=== PATIENT | male | born 1950 | race Caucasian/White ===

== ENCOUNTER → 2017-03-03 | Outpatient (REF) | payer MEDICARE, OTHER ==
[~2017-03-03] MED LIST: ASPI325T PO; DRIS50002 PO; FOLI1TAB4 PO; HYDR-3910 PO; KLON0.5T PO; RISP0.5T21 PO; VENL75TA2 PO; ZOCO20TA PO
[2017-03-03 11:18] LABS: ALBUMIN/GLOBULIN RATIO 1.48 (1.00-1.93); ALKALINE PHOSPHATASE 66 U/L (45-117); ALT/SGPT 19 U/L (12-78); ANION GAP 6 MEQ/L (8-16); AST/SGOT 16 U/L (15-37); BILIRUBIN,TOTAL 0.3 MG/DL (0.2-1.0); BLOOD UREA NITROGEN 12 MG/DL (7-18); CALCIUM LEVEL 8.8 MG/DL (8.8-10.2); CARBON DIOXIDE LEVEL 30 MEQ/L (21-32); CHLORIDE LEVEL 104 MEQ/L (98-107); CHOLESTEROL LEVEL 142 MG/DL (<200); CREATININE FOR GFR 0.67 MG/DL (0.70-1.30); GLOMERULAR FILTRATION RATE > 60.0 (>49); GLUCOSE, FASTING 84 MG/DL (80-110); POTASSIUM SERUM 4.3 MEQ/L (3.5-5.1); SODIUM LEVEL 140 MEQ/L (136-145); TOTAL PROTEIN 6.7 GM/DL (6.4-8.2); TRIGLYCERIDES LEVEL 64 MG/DL (<150)
== END ==
LOC: M LABDRAW1 09:55
PROVIDERS: ATTEND Nurse Practitioner Family
DX: E55.9 Vitamin D deficiency, unspecified (principal); E78.5 Hyperlipidemia, unspecified

== ENCOUNTER → 2018-03-09 | Outpatient (REF) | payer MEDICARE, OTHER ==
[2018-03-09 12:49] LABS: ALBUMIN 3.4 GM/DL (3.2-5.2); ALBUMIN/GLOBULIN RATIO 1.26 (1.00-1.93); ALKALINE PHOSPHATASE 65 U/L (45-117); ALT/SGPT 16 U/L (12-78); ANION GAP 11 MEQ/L (8-16); AST/SGOT 13 U/L (7-37); BILIRUBIN,TOTAL 0.2 MG/DL (0.2-1.0); BLOOD UREA NITROGEN 16 MG/DL (7-18); CALCIUM LEVEL 8.2 MG/DL (8.8-10.2); CARBON DIOXIDE LEVEL 28 MEQ/L (21-32); CHLORIDE LEVEL 102 MEQ/L (98-107); CHOLESTEROL LEVEL 133 MG/DL (<200); CHOLESTEROL RISK RATIO 2.418 (<5); CREATININE FOR GFR 0.92 MG/DL (0.70-1.30); GLOMERULAR FILTRATION RATE > 60.0 (>49); GLUCOSE, FASTING 158 MG/DL (70-100); HDL CHOLESTEROL 55 MG/DL (>40); LDL CHOLESTEROL 66 MG/DL (<100); NON-HDL-C 78 MG/DL; POTASSIUM SERUM 4.1 MEQ/L (3.5-5.1); SODIUM LEVEL 141 MEQ/L (136-145); TOTAL 25(OH) VITAMIN D 20.8 NG/ML (30.0-100.0); TOTAL PROTEIN 6.1 GM/DL (6.4-8.2); TRIGLYCERIDES LEVEL 61 MG/DL (<150)
[2018-03-10 14:39] LABS: PSA TOTAL 2.3 ng/mL (0.0-4.0)
== END ==
LOC: M LABDRAW1 11:20
DX: Z12.5 Encounter for screening for malignant neoplasm of prostate (principal); E55.9 Vitamin D deficiency, unspecified; E78.5 Hyperlipidemia, unspecified
CPT/HCPCS: 80053

== ENCOUNTER 2019-06-23 12:30 | Inpatient (IN) | payer MEDICARE, OTHER ==
[~2019-06-23] VITALS: Ht 177.8 cm; Wt 51.8 kg
[~2019-06-23 12:30] MED LIST changes: +ASPI-1 PO; -ASPI325T PO; -DRIS50002 PO; +DRIS50003 PO; +FOLI1TAB11 PO; -FOLI1TAB4 PO
[2019-06-23] MEDS ORDERED: HYDR-3910 PO (13:14)
[2019-06-23] MEDS ORDERED: ASPI81TA26 PO (13:14)
[2019-06-23] MEDS ORDERED: ZOCO80TA PO (13:14)
[2019-06-23 14:05] LABS: BASO % 0.4 % (0.0-1.0); EOS % 0.4 % (0.0-3.0); HEMOGLOBIN 14.7 g/dl (13.5-17.5); LYMPH # 1.3 10^3/uL (1.5-5.0); LYMPH % 16.4 % (24.0-44.0); MEAN CORPUSCULAR HEMOGLOBIN 29.8 pg (27.0-33.0); MEAN CORPUSCULAR HGB CONC 31.3 g/dl (32.0-36.5); MEAN CORPUSCULAR VOLUME 95.3 fl (80.0-96.0); MONO # 0.6 10^3/uL (0.0-0.8); MONO % 7.4 % (0.0-5.0); NEUTROPHILS # 5.9 10^3/uL (1.5-8.5); NEUTROPHILS % 74.9 % (36.0-66.0); PLATELET COUNT, AUTOMATED 238 10^3/uL (150-450); RED BLOOD COUNT 4.93 10^6/uL (4.30-6.10); WHITE BLOOD COUNT 7.9 10^3/uL (4.0-10.0)
--- NOTE | 2019-06-23 14:07 | REP ---
INDICATION: Hyperthermia PROCEDURE: CT head without contrast. COMPARISON STUDIES: MRI brain without contrast 03/19/2015. FINDINGS: No acute bleed or acute large vessel territorial infarct. Ventricles, cisterns and sulci within normal limits. No mass effect or midline shift. No abnormal fluid collections. Paranasal sinuses and mastoid air cells are clear. Comparison MRI from 03/19/2015 showed a few scattered nonspecific white matter changes. A few punctate hypodensities are seen scattered, right and left caudate and right and left thalami, that may represent sequelae of small lacunar infarcts. IMPRESSION: No acute findings. Electronically Signed by Pedro Green MD 06/23/2019 01:58 P
[2019-06-23 14:36] LABS: ALBUMIN 3.4 GM/DL (3.2-5.2); ALT/SGPT 20 U/L (12-78); BILIRUBIN,DIRECT 0.1 MG/DL (0.0-0.2); BILIRUBIN,TOTAL 0.4 MG/DL (0.2-1.0); CK-MB VALUE MASS 4.6 NG/ML (<3.6); CPK CREATINE PHOSPHOKINASE 96 U/L (39-308); LIPASE 103 U/L (73-393); MB/CK RELATIVE INDEX 4.79 (< OR =4); TOTAL PROTEIN 6.5 GM/DL (6.4-8.2); TROPONIN I < 0.02 NG/ML (< 0.10)
[2019-06-23] MEDS ORDERED: ALBUTEROL SULFATE 2.5 MG/0.5 ML INH NEB SOLN As Ordered ONE (15:23)
[2019-06-23] MEDS ORDERED: IPRATROPIUM 0.5MG/ALBUTEROL 2.5MG INH SOL UD 3ML (DUONEB)(J7620) As Ordered ONE (15:24)
[2019-06-23] MEDS: ALBUTEROL SULFATE 2.5 MG/0.5 ML INH NEB SOLN INH PRN ×2 (15:30→15:55)
[2019-06-23] MEDS ORDERED: IPRATROPIUM 0.5MG/ALBUTEROL 2.5MG INH SOL UD 3ML (DUONEB)(J7620) NEB ONE (15:30)
--- NOTE | 2019-06-23 15:45 | REP ---
Portable chest x-ray: Single view. History: Hypothermia. Comparison study: March 19, 2015. Findings: Patient is rotated somewhat to the left. The lungs are symmetrically aerated and free of infiltrate. Heart is not enlarged. Pulmonary vasculature is not increased. No bony abnormalities seen. Impression: No active cardiopulmonary disease. Electronically Signed by Osbaldo Figueroa MD 06/23/2019 01:46 P
[2019-06-23] MEDS ORDERED: ACETAMINOPHEN TAB 650MG DOSE (2X325MG) PO PRN (16:45)
--- NOTE | 2019-06-23 16:46 | HPEPDOC ---
[facility] Medical History & Physical Date of Admission Jun 23, 2019 Date of Service: Jun 23, 2019 History and Physical CHIEF COMPLAINT: Hypothermia HISTORY OF PRESENT ILLNESS: Patient is 68M with PMH anxiety and previous alcohol abuse brought into the ER after neighbors noted patient to be acting strange at home after checking up on him. Upon EMS arrival patient was found to have T 91.7F with subsequent warming to 94.7F upon ER arrival, now with normal body temperature. Patient currently appears well and denies any complaints, although noted to be hypoxic on ABG and O2 sat requiring some O2 support via nasal cannula. Patient does not remember what happened or why he is in the hospital. He does remember having dinner and going to bed last night but has very hazy memory of what happened today. PAST MEDICAL HISTORY: Refer to [facility] PAST SURGICAL HISTORY: None SOCIAL HISTORY: Smokes 1-2 ppd. Former heavy alcohol user. Denies illicit drug use. FAMILY HISTORY: Parents- DM ALLERGIES: Please see below. REVIEW OF SYSTEMS: 10 point review of system negative except as stated in HPI HOME MEDICATIONS: Please see below. PHYSICAL EXAMINATION: General: Alert, poor memory, very thin, appear malnourished Eyes: Normal sclera, EOMI HENT: Atraumatic Cardiovascular: Tachycardic, normal rhythm. Pulmonary: Clear to auscultation b/l, no wheezing GI: Soft, nontender, nondistended Skin: Warm and dry Neuro: CN grossly intact. No focal deficits. Strengths equal b/l. Psych: oriented x 3 LABORATORY DATA: See below. IMAGING: Head CT- No acute findings. CXR- No active cardiopulmonary disease. MICROBIOLOGY: Please see below. ASSESSMENT AND PLAN: 1. Hypothermia - Appear to be enviromental etiology. - No evidence of sepsis. No leukocytosis, no lactic acidosis. - Patient clinically well at this time, does not appear ill. - Mild tachycardia in low 100s HR. Will monitor on PCU. - Denies any chest pain. Negative troponin. EKG appear to be some evidence of ST depression in inferior leads but does not fit criteria to consider ST depression. 2. Anxiety - Resume home meds. 3. Hx alcohol abuse - Has quit many years ago. Very poor memory at this time, unsure of baseline. - Will give a banana bag follow by thiamine and folate supplementation. 4. Hypoxia - Unknown etiology. - CXR clear, extensive smoking history, no official diagnosis of COPD but may very well have it. - Monitor and wean off O2 if possible. 5. Nicotine dependence - Offer nicotine patch. 6. Protein calory malnutrition - Dietary consult. DVT ppx: Lovenox Code status: Full code Vital Signs Vital Signs Date Time Temp Pulse Resp B/P (MAP) Pulse Ox O2 Delivery O2 Flow Rate FiO2 06/23/19 16:30 104 18 139/106 (117) 96 Nasal Cannula 2.0 06/23/19 14:37 97.9 Laboratory Data Labs 24H Laboratory Tests 2 06/23/19 13:56: Immature Granulocyte % (Auto) 0.5, Neutrophils (%) (Auto) 74.9H, Lymphocytes (%) (Auto) 16.4L, Monocytes (%) (Auto) 7.4H, Eosinophils (%) (Auto) 0.4, Basophils (%) (Auto) 0.4, Neutrophils # (Auto) 5.9, Lymphocytes # (Auto) 1.3L, Monocytes # (Auto) 0.6, Eosinophils # (Auto) 0.0, Basophils # (Auto) 0.0, Nucleated Red Blood Cells % (auto) 0.0, Total Bilirubin 0.4, Direct Bilirubin 0.1, Aspartate Amino Transf (AST/SGOT) 20, Alanine Aminotransferase (ALT/SGPT) 20, Alkaline Phosphatase 84, Total Creatine Kinase 96, Creatine Kinase MB 4.6H, Creatine Kinase MB Relative Index 4.79H, Troponin I < 0.02, Total Protein 6.5, Albumin 3.4, Albumin/Globulin Ratio 1.10, Lipase 103 06/23/19 14:01: POC Glucose (Misc Panel) 129H, POC Sodium (Misc Panel) 140, POC Potassium (Misc Panel) 4.9, POC Chloride (Misc Panel) 97L, POC Total CO2 (Misc Panel) 35.0H, POC Blood Urea Nitrogen (Misc Panel 12, POC Ionized Calcium (Misc Panel) 4.4L, POC Creatinine (Misc Panel) 0.5L, POC Hematocrit (Misc Panel) 45.0 06/23/19 14:02: POC Lactate (Misc Panel) 1.69 06/23/19 15:18: POC Total CO2 (Misc Panel) 36.0H, POC pH (Misc Panel) 7.374, POC Base Excess (Misc Panel) 9.0H, POC Saturated Percent O2 (Misc) 87L, POC pO2 (Misc Panel) 56.0L, POC pCO2 (Misc Panel) 58.9H, POC HCO3 (Misc Panel) 34.4H CBC/BMP Laboratory Tests 06/23/19 13:56 Home Medications Scheduled Aspirin (Aspirin EC) 81 Mg Tablet.dr, 81 MG PO DAILY Clonazepam (Klonopin) 0.5 Mg Tab, 0.5 MG PO BID Folic Acid (Folic Acid) 1 Mg Tab, 1 MG PO DAILY Hydralazine HCl (Hydralazine HCl) 25 Mg Tablet, 25 MG PO BID Risperidone (Risperdal) 0.5 Mg Tab, 0.5 MG PO QHS PATIENT'S PILL BOTTLE IS EMPTY, STATES HE DID TAKE LAST NIGHT - LAST FILLED JANUARY 2019 Simvastatin (Zocor) 80 Mg Tablet, 80 MG PO QHS Venlafaxine HCl (Venlafaxine HCl) 75 Mg Tab, 150 MG PO DAILY Allergies Coded Allergies: No Known Allergies (Unverified , 03/20/15) A-FIB/CHADSVASC A-FIB History Current/History of A-Fib/PAF?: No RAFFY COLLIER MD Jun 23, 2019 16:46
[2019-06-23 17:45] VITALS: BP 132/79
[2019-06-23 19:38] LABS: HIV 1&2 SCREEN CENTAUR NEGATIVE (NEGATIVE)
[2019-06-23] MEDS ORDERED: MULTIVITAMIN -ADULT INJECTION 10 ML, THIAMINE INJection 100 MG, FOLIC ACID 1 MG in NS 1... IV ONE (20:00)
[2019-06-23 20:21] VITALS: BP 142/84
[2019-06-23 23:59] VITALS: BP 148/98
[2019-06-24 05:32] VITALS: BP 160/102
[2019-06-24 05:53] LABS: ALT/SGPT 15 U/L (12-78); BILIRUBIN,TOTAL 0.4 MG/DL (0.2-1.0); BLOOD UREA NITROGEN 8 MG/DL (7-18); CALCIUM LEVEL 8.7 MG/DL (8.8-10.2); CARBON DIOXIDE LEVEL 30 MEQ/L (21-32); CHLORIDE LEVEL 104 MEQ/L (98-107); CREATININE FOR GFR 0.55 MG/DL (0.70-1.30); GLOMERULAR FILTRATION RATE > 60.0 (>49); GLUCOSE, FASTING 122 MG/DL (70-100); POTASSIUM SERUM 3.7 MEQ/L (3.5-5.1); SODIUM LEVEL 139 MEQ/L (136-145); TOTAL PROTEIN 6.4 GM/DL (6.4-8.2)
[2019-06-24 07:49] VITALS: BP 142/98
[2019-06-24] MEDS: FOLIC ACID 1 MG TAB PO SCH (08:08)
[2019-06-24] MEDS: THIAMINE 100 MG TAB PO SCH (08:08)
[2019-06-24] MEDS: ENOXAPARIN 40 MG/0.4 ML SYRINGE (J1650) SC SCH (08:08)
[2019-06-24] MEDS: NICOTINE 14 MG/24 HR TRANSDERMAL TD SCH (08:08)
--- NOTE | 2019-06-24 09:56 | ECGEPIP ---
[facility] - ED Test Date: 2019-06-23 Pat Name: SHARYN RUBY Department: Room: - Gender: Male Stuffer: : 1950 Requested By: SOPHIA RODGERS Order Number: [id number] Reading MD: Mira Ferrell Measurements Intervals [place] Rate: 97 P: 87 MS: 174 QRS: -13 QRSD: 101 T: 267 QT: 396 QTc: 504 Interpretive Statements SINUS RHYTHM ST DEVIATION AND MODERATE T-WAVE ABNORMALITY, CONSIDER INFERIOR ISCHEMIA, CLINICAL CORRELATION, MORE PRONOUNCED 03/19/15 Electronically Signed on 06-24-2019 9:56:19 EST by Mira Ferrell
--- NOTE | 2019-06-24 11:47 | IPNPDOC ---
Date Seen The patient was seen on 06/24/19. Progress Note SUBJECTIVE: Patient reports feeling well, still does not report any complaints. HR 90-100s. Last temp 97.8 Saturating well on 2L NC OBJECTIVE PHYSICAL EXAMINATION: General: Alert, poor memory, very thin, appear malnourished Eyes: Normal sclera, EOMI HENT: Atraumatic Cardiovascular: Normal rate, normal rhythm. Pulmonary: Clear to auscultation b/l, no wheezing GI: Soft, nontender, nondistended Skin: Warm and dry Neuro: CN grossly intact. No focal deficits. Strengths equal b/l. Psych: oriented x 3 LABORATORY DATA: See below. IMAGING: Head CT- No acute findings. CXR- No active cardiopulmonary disease. MICROBIOLOGY: Please see below. ASSESSMENT AND PLAN: 1. Hypothermia - Appear to be enviromental etiology. Suspect patient may have been outside for awhile? - No evidence of sepsis. No leukocytosis, no lactic acidosis. - Patient clinically well, does not appear ill. - Mild tachycardia improved. Will monitor on PCU. - Denies any chest pain. Negative troponin. 2. Anxiety - Resume home meds. 3. Hx alcohol abuse - Has quit many years ago. Very poor memory at this time, unsure of baseline. - thiamine and folate supplementation. 4. Hypoxia - Unknown etiology. - CXR clear, extensive smoking history, no official diagnosis of COPD but may very well have it. - Monitor and wean off O2 if possible. 5. Nicotine dependence - Offer nicotine patch. 6. Protein calory malnutrition - Dietary consult. DVT ppx: Lovenox Code status: Full code Dispo: Pending PT home safety eval clearance. To contact apartment to make sure heating system is working properly at patient's residence. VS, I&O, 24H, Fishbone Vital Signs/I&O Vital Signs Date Time Temp Pulse Resp B/P (MAP) Pulse Ox O2 Delivery O2 Flow Rate FiO2 06/24/19 07:49 97.8 99 20 142/98 (113) 95 Nasal Cannula 2.0 I&O- Last 24 Hours up to 6 AM 06/24/19 06:00 Intake Total 600 ml Output Total 1050 ml Balance -450 ml Laboratory Data 24H LABS Laboratory Tests 2 06/23/19 13:56: Immature Granulocyte % (Auto) 0.5, Neutrophils (%) (Auto) 74.9H, Lymphocytes (%) (Auto) 16.4L, Monocytes (%) (Auto) 7.4H, Eosinophils (%) (Auto) 0.4, Basophils (%) (Auto) 0.4, Neutrophils # (Auto) 5.9, Lymphocytes # (Auto) 1.3L, Monocytes # (Auto) 0.6, Eosinophils # (Auto) 0.0, Basophils # (Auto) 0.0, Nucleated Red Blood Cells % (auto) 0.0, Total Bilirubin 0.4, Direct Bilirubin 0.1, Aspartate Amino Transf (AST/SGOT) 20, Alanine Aminotransferase (ALT/SGPT) 20, Alkaline Phosphatase 84, Total Creatine Kinase 96, Creatine Kinase MB 4.6H, Creatine Kinase MB Relative Index 4.79H, Troponin I < 0.02, Total Protein 6.5, Albumin 3.4, Albumin/Globulin Ratio 1.10, Lipase 103, HIV Antigen/Antibody Combo Qual NEGATIVE 06/23/19 14:01: POC Glucose (Misc Panel) 129H, POC Sodium (Misc Panel) 140, POC Potassium (Misc Panel) 4.9, POC Chloride (Misc Panel) 97L, POC Total CO2 (Misc Panel) 35.0H, POC Blood Urea Nitrogen (Misc Panel 12, POC Ionized Calcium (Misc Panel) 4.4L, POC Creatinine (Misc Panel) 0.5L, POC Hematocrit (Misc Panel) 45.0 06/23/19 14:02: POC Lactate (Misc Panel) 1.69 06/23/19 15:18: POC Total CO2 (Misc Panel) 36.0H, POC pH (Misc Panel) 7.374, POC Base Excess (Misc Panel) 9.0H, POC Saturated Percent O2 (Misc) 87L, POC pO2 (Misc Panel) 56.0L, POC pCO2 (Misc Panel) 58.9H, POC HCO3 (Misc Panel) 34.4H 06/24/19 05:07: Anion Gap 5L, Glomerular Filtration Rate > 60.0, Calcium Level 8.7L, Total Bilirubin 0.4, Aspartate Amino Transf (AST/SGOT) 13, Alanine Aminotransferase (ALT/SGPT) 15, Alkaline Phosphatase 70, Total Protein 6.4, Albumin 3.0L, Albumin/Globulin Ratio 0.88L CBC/BMP Laboratory Tests 06/23/19 13:56 06/24/19 05:07 RAFFY COLLIER MD Jun 24, 2019 11:47
[2019-06-24 11:50] VITALS: BP 154/93
[2019-06-24 13:00] VITALS: BP 150/92
[2019-06-24 14:00] VITALS: BP 150/82
[2019-06-24 22:00] VITALS: BP 162/88
[2019-06-25 05:30] VITALS: BP 164/110
[2019-06-25 05:55] VITALS: BP 164/110
[2019-06-25] MEDS ORDERED: **hydrALAZINE** 10 MG TAB PO ONE (06:15)
[2019-06-25 07:55] LABS: HEMATOCRIT 56.7 % (42.0-52.0); HEMOGLOBIN 17.7 g/dl (13.5-17.5); MEAN CORPUSCULAR HEMOGLOBIN 29.6 pg (27.0-33.0); MEAN CORPUSCULAR HGB CONC 31.2 g/dl (32.0-36.5); PLATELET COUNT, AUTOMATED 236 10^3/uL (150-450); RED BLOOD COUNT 5.97 10^6/uL (4.30-6.10); WHITE BLOOD COUNT 11.7 10^3/uL (4.0-10.0)
[2019-06-25 08:17] LABS: BLOOD UREA NITROGEN 6 MG/DL (7-18); CALCIUM LEVEL 8.9 MG/DL (8.8-10.2); CARBON DIOXIDE LEVEL 32 MEQ/L (21-32); CHLORIDE LEVEL 103 MEQ/L (98-107); CREATININE FOR GFR 0.56 MG/DL (0.70-1.30); GLOMERULAR FILTRATION RATE > 60.0 (>49); GLUCOSE, FASTING 120 MG/DL (70-100); POTASSIUM SERUM 3.6 MEQ/L (3.5-5.1); SODIUM LEVEL 140 MEQ/L (136-145)
[2019-06-25] MEDS: NICOTINE 14 MG/24 HR TRANSDERMAL TD SCH (08:18)
[2019-06-25] MEDS: THIAMINE 100 MG TAB PO SCH (08:18)
[2019-06-25] MEDS: NS 1,000 ML IV SCH ×2 (08:18→17:17)
[2019-06-25] MEDS: ENOXAPARIN 40 MG/0.4 ML SYRINGE (J1650) SC SCH (08:18)
[2019-06-25] MEDS: FOLIC ACID 1 MG TAB PO SCH (08:18)
[2019-06-25] MEDS ORDERED: amLODIPine 5 MG TAB PO SCH (09:00)
[2019-06-25 11:22] VITALS: BP 138/80
[2019-06-25 14:00] VITALS: BP 118/70
--- NOTE | 2019-06-25 14:34 | IPNPDOC ---
Date Seen The patient was seen on 06/25/19. Progress Note SUBJECTIVE: Patient states that he feels well, denies any pain, SOB, fever/chills. HR remains elevated 100-120s. Otherwise afebrile, saturating well on room air. OBJECTIVE PHYSICAL EXAMINATION: General: Alert, poor memory, very thin, appear malnourished Eyes: Normal sclera, EOMI HENT: Atraumatic Cardiovascular: Normal rate, normal rhythm. Pulmonary: Clear to auscultation b/l, no wheezing GI: Soft, nontender, nondistended Skin: Warm and dry Neuro: CN grossly intact. No focal deficits. Strengths equal b/l. Psych: oriented x 3 LABORATORY DATA: See below. IMAGING: Head CT- No acute findings. CXR- No active cardiopulmonary disease. MICROBIOLOGY: Please see below. ASSESSMENT AND PLAN: 1. Hypothermia - Appear to be environmental etiology. Suspect patient may have been outside for awhile? - No evidence of sepsis. No leukocytosis, no lactic acidosis. - Patient clinically well, does not appear ill. - Mild tachycardia. Will start on IVF, suspect hypovolemic/dehydration. - Denies any chest pain. Negative troponin. 2. Anxiety - Resume home meds. 3. Hx alcohol abuse - Has quit many years ago. Very poor memory at this time, unsure of baseline. - thiamine and folate supplementation. 4. Hypoxia - Unknown etiology. - CXR clear, extensive smoking history, no official diagnosis of COPD but may very well have it. - Monitor and wean off O2 if possible. 5. Nicotine dependence - Offer nicotine patch. 6. Protein calory malnutrition - Dietary consult. 7. HTN - Not on medications for HTN but BP had been high periodically, especially with diastolic pressure. - Started on Norvasc. DVT ppx: Lovenox Code status: Full code Dispo: Pending PT home safety eval clearance. To contact apartment to make sure heating system is working properly at patient's residence. VS, I&O, 24H, Fishbone Vital Signs/I&O Vital Signs Date Time Temp Pulse Resp B/P (MAP) Pulse Ox O2 Delivery O2 Flow Rate FiO2 06/25/19 11:22 121 138/80 (99) 06/25/19 06:00 98.0 20 97 Room Air 06/24/19 11:50 2.0 I&O- Last 24 Hours up to 6 AM 1/19/20 06:00 Intake Total 1000 ml Output Total 1050 ml Balance -50 ml Laboratory Data 24H LABS Laboratory Tests 2 06/25/19 05:36: Bedside Glucose (Misc Panel) 139H 06/25/19 07:42: Nucleated Red Blood Cells % (auto) 0.0, Anion Gap 5L, Glomerular Filtration Rate > 60.0, Calcium Level 8.9 CBC/BMP Laboratory Tests 06/25/19 07:42 RAFFY COLLIER MD Jun 25, 2019 14:34
[2019-06-25 22:00] VITALS: BP 177/113
[2019-06-26] MEDS: NS 1,000 ML IV SCH ×2 (04:26→14:08)
[2019-06-26] MEDS ORDERED: amLODIPine 5 MG TAB PO ONE ×2 (04:45→09:00)
[2019-06-26 06:00] VITALS: BP 182/108
[2019-06-26 08:30] LABS: HEMATOCRIT 51.8 % (42.0-52.0); HEMOGLOBIN 16.2 g/dl (13.5-17.5); MEAN CORPUSCULAR HEMOGLOBIN 30.1 pg (27.0-33.0); MEAN CORPUSCULAR HGB CONC 31.3 g/dl (32.0-36.5); MEAN CORPUSCULAR VOLUME 96.3 fl (80.0-96.0); PLATELET COUNT, AUTOMATED 239 10^3/uL (150-450); RED BLOOD COUNT 5.38 10^6/uL (4.30-6.10); WHITE BLOOD COUNT 10.2 10^3/uL (4.0-10.0)
[2019-06-26] MEDS: FOLIC ACID 1 MG TAB PO SCH (08:42)
[2019-06-26] MEDS: THIAMINE 100 MG TAB PO SCH (08:42)
[2019-06-26] MEDS: ENOXAPARIN 40 MG/0.4 ML SYRINGE (J1650) SC SCH (08:42)
[2019-06-26] MEDS: NICOTINE 14 MG/24 HR TRANSDERMAL TD SCH (08:44)
[2019-06-26 08:56] LABS: BLOOD UREA NITROGEN 9 MG/DL (7-18); CALCIUM LEVEL 8.4 MG/DL (8.8-10.2); CARBON DIOXIDE LEVEL 34 MEQ/L (21-32); CHLORIDE LEVEL 103 MEQ/L (98-107); CREATININE FOR GFR 0.75 MG/DL (0.70-1.30); GLOMERULAR FILTRATION RATE > 60.0 (>49); GLUCOSE, FASTING 183 MG/DL (70-100); SODIUM LEVEL 141 MEQ/L (136-145)
[2019-06-26] MEDS ORDERED: amLODIPine 10 MG TAB PO SCH (09:00)
[2019-06-26 10:00] VITALS: BP 132/99
[2019-06-26 12:16] LABS: HEPATITIS C VIRUS ABY INDEX < 0.0 INDEX (<0.8)
[2019-06-26 14:00] VITALS: BP 130/96
--- NOTE | 2019-06-26 17:06 | IPNPDOC ---
Date Seen The patient was seen on 06/26/19. Progress Note SUBJECTIVE: Patient denies any complaints including any discomfort, SOB. Remains off of oxygen. HR still intermittently elevated fluctuating from 90-110s. WBC 10..2. OBJECTIVE PHYSICAL EXAMINATION: General: Alert, poor memory, very thin, appear malnourished Eyes: Normal sclera, EOMI HENT: Atraumatic Cardiovascular: tachycardia, normal rhythm. Pulmonary: Clear to auscultation b/l, no wheezing GI: Soft, nontender, nondistended Skin: Warm and dry Neuro: CN grossly intact. No focal deficits. Strengths equal b/l. Psych: oriented x 3 LABORATORY DATA: See below. IMAGING: Head CT- No acute findings. CXR- No active cardiopulmonary disease. MICROBIOLOGY: Please see below. ASSESSMENT AND PLAN: 1. Hypothermia - Appear to be environmental etiology. Suspect patient may have been outside for awhile? - No clear evidence of sepsis. No lactic acidosis. - However, has had a bump in WBC to 11.7 and now 10.2 along with tachycardia that had not resolved with IVF. - Order ECHO and blood cultures. - Denies any chest pain. Negative troponin. 2. Anxiety - Resume home meds. 3. Hx alcohol abuse - Has quit many years ago. Very poor memory at this time, unsure of baseline. - thiamine and folate supplementation. 4. Hypoxia - Unknown etiology. - CXR clear, extensive smoking history, no official diagnosis of COPD but may very well have it. - Monitor and wean off O2 if possible. 5. Nicotine dependence - Offer nicotine patch. 6. Protein calory malnutrition - Dietary consult. 7. HTN - Not on medications for HTN but BP had been high periodically, especially with diastolic pressure. - Started on Norvasc. DVT ppx: Lovenox Code status: Full code Dispo: Pending PT home safety eval clearance. To contact apartment to make sure heating system is working properly at patient's residence. VS, I&O, 24H, Fishbone Vital Signs/I&O Vital Signs Date Time Temp Pulse Resp B/P (MAP) Pulse Ox O2 Delivery O2 Flow Rate FiO2 06/26/19 14:00 98.3 101 18 130/96 (107) 96 Room Air 06/25/19 14:00 1.0 I&O- Last 24 Hours up to 6 AM 06/26/19 06:00 Intake Total 2830 ml Output Total 1655 ml Balance 1175 ml Laboratory Data 24H LABS Laboratory Tests 2 06/26/19 08:16: Nucleated Red Blood Cells % (auto) 0.0, Anion Gap 4L, Glomerular Filtration Rate > 60.0, Calcium Level 8.4L CBC/BMP Laboratory Tests 06/26/19 08:16 RAFFY COLLIER MD Jun 26, 2019 17:06
[2019-06-26 18:00] VITALS: BP 114/76
[2019-06-26 22:00] VITALS: BP 132/87
[2019-06-27] MEDS: NS 1,000 ML IV SCH ×2 (00:32→09:34)
[2019-06-27 02:00] VITALS: BP 122/75
[2019-06-27] MEDS: NICOTINE 21MG/24HR 1 EA TRANSDERMAL TD SCH ×2 (02:03→09:31)
[2019-06-27 06:00] VITALS: BP 142/89
[2019-06-27] MEDS ORDERED: amLODIPine 10 MG TAB PO SCH (09:00)
[2019-06-27] MEDS ORDERED: NICOTINE 14 MG/24 HR TRANSDERMAL TD SCH (09:00)
[2019-06-27] MEDS: THIAMINE 100 MG TAB PO SCH (09:30)
[2019-06-27] MEDS: ENOXAPARIN 40 MG/0.4 ML SYRINGE (J1650) SC SCH (09:31)
[2019-06-27 09:32] VITALS: BP 123/91
[2019-06-27] MEDS: FOLIC ACID 1 MG TAB PO SCH (09:33)
[2019-06-27 14:00] VITALS: BP 146/86
[2019-06-27] MEDS ORDERED: ASPIRIN 81 MG ENTERIC TAB PO SCH (15:30)
[2019-06-27] MEDS ORDERED: ATORVASTATIN 20 MG TAB PO ONE (15:30)
[2019-06-27 15:58] LABS: BASO % 0.4 % (0.0-1.0); EOS % 0.4 % (0.0-3.0); HEMATOCRIT 44.2 % (42.0-52.0); HEMOGLOBIN 13.8 g/dl (13.5-17.5); LYMPH # 1.5 10^3/uL (1.5-5.0); LYMPH % 17.6 % (24.0-44.0); MEAN CORPUSCULAR HEMOGLOBIN 29.5 pg (27.0-33.0); MEAN CORPUSCULAR HGB CONC 31.2 g/dl (32.0-36.5); MEAN CORPUSCULAR VOLUME 94.4 fl (80.0-96.0); MONO # 0.7 10^3/uL (0.0-0.8); MONO % 7.9 % (0.0-5.0); NEUTROPHILS # 6.1 10^3/uL (1.5-8.5); NEUTROPHILS % 73.3 % (36.0-66.0); PLATELET COUNT, AUTOMATED 213 10^3/uL (150-450); RED BLOOD COUNT 4.68 10^6/uL (4.30-6.10); WHITE BLOOD COUNT 8.3 10^3/uL (4.0-10.0)
[2019-06-27 16:36] LABS: ERYTHROCYTE SEDIMENTATION RATE 7 mm/hr (0-20)
[2019-06-27 16:41] LABS: BLOOD UREA NITROGEN 16 MG/DL (7-18); C REACTIVE PROTEIN QUANTITATIV < 0.30 MG/DL (0.00-0.30); CALCIUM LEVEL 8.8 MG/DL (8.8-10.2); CARBON DIOXIDE LEVEL 29 MEQ/L (21-32); CHLORIDE LEVEL 104 MEQ/L (98-107); CHOLESTEROL LEVEL 172 MG/DL (<200); CHOLESTEROL RISK RATIO 3.185 (<5); FREE THYROXINE INDEX 4.1 % (1.4-3.8); GLOMERULAR FILTRATION RATE > 60.0 (>49); GLUCOSE, FASTING 85 MG/DL (70-100); HDL CHOLESTEROL 54 MG/DL (>40); LDL CHOLESTEROL 94 MG/DL (<100); NON-HDL-C 118 MG/DL; POTASSIUM SERUM 4.3 MEQ/L (3.5-5.1); SODIUM LEVEL 141 MEQ/L (136-145); T UPTAKE 35 % (33-40); THYROID STIMULATING HORMONE 0.832 uIU/ML (0.358-3.740); THYROXINE (T4) 11.6 UG/DL (4.5-12.0); TRIGLYCERIDES LEVEL 122 MG/DL (<150)
--- NOTE | 2019-06-27 19:15 | ECHO ---
DATE OF PROCEDURE: 06/27/2019 REFERRING PHYSICIAN: Dr. Torrez INDICATION: Tachycardia. Height 178 cm, weight 52 kg. DIMENSIONS: IVS: 1.2 LV: 3.8 LVPW: 1.2 LA: 3.0 Aorta: 3.9 IVC: 1.3 Mitral E wave velocity: 59 A wave: 70 E prime septal: 4.0 E prime lateral: 6.0 FINDINGS: The study is of fair technical quality. The patient is in sinus rhythm. Left ventricle is normal size and has normal systolic function, estimated ejection fraction (EF) around 60% Based on technical limitations of the study, I cannot rule out subtle wall motion abnormalities. The right ventricle appears to be normal size and systolic function as well. Aortic valve is mildly sclerotic but mobility of cusps is preserved. There are mild degenerative abnormalities of mitral valve as well. Tricuspid and pulmonic valves appear normal. No pericardial effusion is noted. Inferior vena cava is normal size. Aortic root is mildly dilated at 3.9 cm. Aortic arch was not seen. There is some degree of atherosclerosis apparent in abdominal aorta. Doppler interrogation of aortic valve reveals no stenosis and trace insufficiency. There is also trace mitral insufficiency. Tricuspid valve is functionally competent. Same applies for pulmonic valve. Mitral inflow pattern and tissue Doppler imaging of mitral annulus revealed grade 1 diastolic dysfunction. CONCLUSIONS: 1. Study is of fair technical quality, patient is in sinus rhythm. 2. Normal left ventricular (LV) size with mild left ventricular hypertrophy (LVH) and preserved LV systolic function. Grade 1 diastolic dysfunction. 3. Aortic sclerosis but no stenosis, only trace insufficiency. 4. Trace mitral insufficiency. 5. Normal central venous pressure. 6. Unable to estimate pulmonary artery pressure. 7. Borderline dilated aortic root (3.9 cm). COMMENT: Subacute bacterial endocarditis (SBE) prophylaxis is not recommended. Study does not provide obvious explanation for cause of tachycardia.
--- NOTE | 2019-06-28 07:47 | DSES ---
DATE OF ADMISSION: 06/23/2019 DATE OF DISCHARGE: 06/27/2019 PRIMARY DISCHARGE DIAGNOSIS: 1. Hypothermia secondary to cold ambient temperature. 2. Anxiety. 3. History of alcohol abuse. 4. Hypoxia with history of extensive smoking with no diagnosis of chronic obstructive pulmonary disease. 5. Nicotine dependence. 6. Protein calorie malnutrition. 7. Small lacunar strokes on CT of head in right thalamus. DISCHARGE MEDICATIONS: Aspirin 81 mg daily, Lipitor 20 mg at bedtime, Klonopin 0.5 twice a day, folic acid 1 mg daily, hydralazine 25 twice a day, Risperdal 0.5 at bedtime, Zocor 80 mg at bedtime, Venlafaxine 150 daily, nicotine patch 21 mg daily. HOSPITAL COURSE: This is a 68-year-old male brought in after being found by neighbors acting strange at home and found to have a T-max of 91.7 with subsequent warming to 94.7. He was found to be hypoxic on ABG, requiring nasal cannula. He had no recollection of the events. The patient had blood cultures taken which were negative. White count was slightly elevated at 11.7. No urinalysis (UA) was obtained. The patient had a chest x-ray that showed no acute cardiopulmonary process. CT of the head showed possible small lacunar infarcts. Echocardiogram pending official report. EKG showed sinus rhythm, ventricle rate of 97, ST deviation, moderate T wave abnormality, consider inferior ischemia. Troponin was less than 0.02. The patient was kept on IV fluids, thiamine, and folate. He had improved temperature to 97.2. On discharge, back to his normal mentation, kept on low dose aspirin and continued on his high dose Zocor and nicotine patch with tobacco cessation counseling. Lipid panel still pending. He passed a home safety evaluation with recommendations for outpatient physical therapy. PHYSICAL EXAMINATION ON DISCHARGE: Temperature 97.2, pulse 84, respiratory rate 18, blood pressure 142/89, 98% on room air. Generally awake, alert and oriented to person and place, answering questions appropriately. Heart: S1, S2, regular rhythm, sinus tachycardia. Lungs clear to auscultation. No wheezing, rales or rhonchi. Abdomen: Soft. Nontender. Nondistended. Positive bowel sounds times four quadrants. Skin: Multiple tattoos bilateral upper extremities and chest. Neurologically, awake, alert and oriented times three. Motor function 5/5 times four extremities. No focal deficits. No facial drooping. Tongue is midline. No sensory disturbance. LABORATORY DATA: White count 10, hemoglobin 16, hematocrit 51, platelet count 239. Sodium 140, potassium 4, chloride 103, bicarbonate 34, BUN 9, creatinine 0.75, glucose 183. Lipid profile is still pending. Two sets of blood cultures are negative. Chest x-ray with no acute cardiopulmonary process. CT of the head comparison MRI from 03/19/2015 shows a few scattered nonspecific white matter changes, a few punctate hyper densities seen scattered right and left caudate and right and left thalami, may represent sequelae of small lacunar infarcts. TIME SPENT ON DISCHARGE: 30 minutes. [facility]
[2019-06-28] MEDS ORDERED: ATORVASTATIN 20 MG TAB PO SCH (09:00)
--- NOTE | 2019-06-28 10:30 | NOCOX ---
DATE OF PROCEDURE: 06/27/2019 ORDERED BY: The study is performed on room air. Study of reasonable technical quality. Mean oxygen saturation for the study 94.4%. Lowest reliably recorded saturation 88%. There are large areas of artifact. IMPRESSION: Borderline nocturnal oximetry. Repeat study and clinical correlation are required.
== END 2019-06-27 16:47 | disposition home or self-care (01) | DRG 923 ==
LOC: M ED 12:30 → M ED INP 16:37 → ENRESERV 16:48 → M PCU 17:42 → M MSPAV 06-24 12:51
PROVIDERS: ADMIT Student in an Organized Health Care Education/Training Program; ATTEND Internal Medicine
DX: T68.XXXA Hypothermia, initial encounter (principal); E46 Unspecified protein-calorie malnutrition; F17.210 Nicotine dependence, cigarettes, uncomplicated; F10.21 Alcohol dependence, in remission; F41.9 Anxiety disorder, unspecified; R09.02 Hypoxemia; Z79.82 Long term (current) use of aspirin; Z79.899 Other long term (current) drug therapy; Z86.73 Personal history of transient ischemic attack (TIA), and cerebral infarction without residual deficits; X58.XXXA Exposure to other specified factors, initial encounter; Y92.89 Other specified places as the place of occurrence of the external cause

== ENCOUNTER → 2019-07-17 | Outpatient (CLI) | payer MEDICARE, OTHER ==
[~2019-07-17] MED LIST changes: +ASPI81TA26 PO; +ZOCO80TA PO
--- NOTE | 2019-07-17 09:40 | REP ---
Clinical: Screening for abdominal aortic aneurysm. Technique: Real time [place] scale ultrasound examination using curved array transducer. Findings: Abdominal aorta demonstrates moderate partially calcified atheromatous plaquing. Infrarenal abdominal aortic aneurysm measures approximately 3.8 x 5.1 cm diameter and 3.6 cm craniocaudal length originating 5.6 cm from the renal arteries. Proximal aorta 2.7 x 2.7 cm. Mid aorta (renal artery level) 2.3 x 2.5 cm. Mid aorta 2.3 x 2.5 cm. Distal aorta 3.8 x 5.1 cm. Right common iliac artery 1.4 cm maximal diameter. Left common iliac artery 1.2 cm maximal diameter. Impression: Infrarenal abdominal aortic aneurysm. Moderate atherosclerotic changes. Electronically Signed by Ananth Wray MD 07/17/2019 09:31 A
--- NOTE | 2019-07-17 10:03 | REP ---
Clinical: Lung screening. History smoking. Comparison: None Technique: Axial low-dose noncontrast images from the thoracic inlet to the upper abdomen using lung screening technique. Findings: The lung lopez are well-aerated. There is evidence for early emphysematous disease. A 2.5 mm noncalcified nodule in the right middle lobe (image 56) is identified. Minimal scattered scarring noted. No consolidation, significant nodule or mass lesion is appreciated. No pleural effusion/reaction or pneumothorax. Tracheobronchial tree is patent. Mediastinum demonstrates moderate to significant atherosclerotic changes of the thoracic aorta and coronary arteries without cardiomegaly. Impression: Lung-RADS category II. 2.5 mm nodule in the right middle lobe. Annual low-dose CT evaluation is recommended as follow-up. Electronically Signed by Ananth Wray MD 07/17/2019 09:54 A
== END ==
LOC: M RAD 08:10
PROVIDERS: ATTEND Physician Assistant
DX: F17.210 Nicotine dependence, cigarettes, uncomplicated (principal)
CPT/HCPCS: 76706; G0297

== ENCOUNTER → 2019-08-10 | Outpatient (REF) | payer MEDICARE, OTHER ==
[2019-08-10 12:57] LABS: BASO # 0.1 10^3/uL (0.0-0.2); BASO % 0.7 % (0.0-1.0); EOS # 0.2 10^3/uL (0.0-0.5); EOS % 2.1 % (0.0-3.0); HEMATOCRIT 44.5 % (42.0-52.0); HEMOGLOBIN 14.4 g/dl (13.5-17.5); MEAN CORPUSCULAR HEMOGLOBIN 30.4 pg (27.0-33.0); MEAN CORPUSCULAR HGB CONC 32.4 g/dl (32.0-36.5); MEAN CORPUSCULAR VOLUME 93.9 fl (80.0-96.0); MONO # 0.9 10^3/uL (0.0-0.8); MONO % 9.6 % (0.0-5.0); NEUTROPHILS # 5.8 10^3/uL (1.5-8.5); NEUTROPHILS % 64.6 % (36.0-66.0); PLATELET COUNT, AUTOMATED 284 10^3/uL (150-450); RED BLOOD COUNT 4.74 10^6/uL (4.30-6.10)
[2019-08-10 13:21] LABS: ALBUMIN 3.8 GM/DL (3.2-5.2); ALT/SGPT 22 U/L (12-78); BILIRUBIN,TOTAL 0.4 MG/DL (0.2-1.0); BLOOD UREA NITROGEN 11 MG/DL (7-18); CALCIUM LEVEL 9.3 MG/DL (8.8-10.2); CARBON DIOXIDE LEVEL 31 MEQ/L (21-32); CHLORIDE LEVEL 99 MEQ/L (98-107); CHOLESTEROL LEVEL 146 MG/DL (<200); CHOLESTEROL RISK RATIO 2.561 (<5); CREATININE FOR GFR 0.68 MG/DL (0.70-1.30); GLOMERULAR FILTRATION RATE > 60.0 (>49); GLUCOSE, FASTING 91 MG/DL (70-100); HDL CHOLESTEROL 57 MG/DL (>40); LDL CHOLESTEROL 74 MG/DL (<100); NON-HDL-C 89 MG/DL; SODIUM LEVEL 136 MEQ/L (136-145); TOTAL PROTEIN 6.7 GM/DL (6.4-8.2); TRIGLYCERIDES LEVEL 77 MG/DL (<150)
== END ==
LOC: M LABDRAW1 10:00
PROVIDERS: ATTEND Physician Assistant
DX: I10 Essential (primary) hypertension (principal); E78.2 Mixed hyperlipidemia

== ENCOUNTER → 2019-09-26 | Outpatient (CLI) | payer MEDICARE, OTHER ==
[~2019-09-26] MED LIST changes: +ISOVUE-370 76% 100ML VIAL (Q9967) As Ordered ONE
--- NOTE | 2019-09-26 09:27 | REP ---
REASON: Stroke. There is abnormal echogenic maternal seen along the carotid arterial levine some of which casts an acoustic shadow consistent with calcific deposition. RIGHT LEFT CCA systolic 74.0 cm/s 74.8 cm/s CCA diastolic 18.5 cm/s 29.0 cm/s ICA systolic 47.9 cm/s 58.5 cm/s ICA diastolic 22.6cm/s 27.6 cm/s ICA/CCA ratio 0.65 0.78 Spectral waveform analysis shows no significant spectral broadening. There is antegrade flow seen in both vertebral arteries. IMPRESSION: According to the NASCET consensus criteria, there is less than 50% stenosis in the internal carotid artery bilaterally secondary to both calcified and noncalcified plaque formation. Electronically Signed by Philip Modi DO 09/26/2019 09:41 A
--- NOTE | 2019-09-26 11:48 | REP ---
CT ANGIOGRAM ABDOMEN AND PELVIS: CT angiogram abdomen and pelvis performed following intravenous administration of 100 mL of Isovue 370. Sagittal, coronal and 3D MIP reconstruction images are performed. The abdominal aorta demonstrates moderate diffuse atherosclerotic calcification. There is a fusiform aneurysm of the infrarenal distal abdominal aorta. This extends to a length of about 4.5 cm. Maximum AP dimension is 4.0 cm and transverse 4.4 cm. There is mild eccentric intraluminal thrombus posterolaterally on the right. There is no stenosis of the mesenteric or renal arteries. There is mild plaquing and narrowing at the origins of all of these arteries. There is moderate diffuse partially calcified plaquing of the common iliac arteries bilaterally as well as the external iliac arteries without definite focal stenosis. There is moderate calcific plaquing of the common femoral arteries without significant stenosis. Liver, spleen, adrenals, pancreas and kidneys are unremarkable. There is no hydronephrosis. There is no adenopathy. There is no free air or free fluid. No definite bowel thickening is seen. No pelvic mass is seen. Urinary bladder is moderate distended and appears unremarkable. There are mild degenerative changes of the spine. IMPRESSION: Fusiform aneurysm of infrarenal distal abdominal aorta as discussed in detail above. No dissection or rupture. Electronically Signed by Vern Cedeño MD 09/26/2019 04:57 P
== END ==
LOC: M RAD 08:12
PROVIDERS: ATTEND Surgery Vascular Surgery
DX: I71.4 Abdominal aortic aneurysm, without rupture (principal); I63.9 Cerebral infarction, unspecified; I65.23 Occlusion and stenosis of bilateral carotid arteries
CPT/HCPCS: 74174; 93880; Q9967

== ENCOUNTER → 2020-03-21 | Outpatient (CLI) | payer MEDICARE, OTHER ==
[~2020-03-21] MED LIST changes: -ISOVUE-370 76% 100ML VIAL (Q9967) As Ordered ONE
== END ==
LOC: M LABSMTC 09:43
PROVIDERS: ATTEND Anesthesiology
DX: Z01.812 Encounter for preprocedural laboratory examination (principal); Z20.828 Contact with and (suspected) exposure to other viral communicable diseases
CPT/HCPCS: C9803; U0003

== ENCOUNTER 2020-06-10 14:48 | Emergency (ER) | payer MEDICARE, OTHER ==
[~2020-06-10] VITALS: Ht 185.4 cm; Wt 76.9 kg
[~2020-06-10 14:48] MED LIST changes: -ALBU8.5H INH; -ISOVUE-370 76% 100ML VIAL As Ordered ONE
--- NOTE | 2020-06-10 16:24 | REP ---
INDICATION: altered/dizzy COMPARISON: 06/23/2019 TECHNIQUE: Axial noncontrast images from the skull base to the thoracic inlet with coronal reformations. This CT examination was performed using the following dose reduction techniques: Automated exposure control, adjustment of mA and/or kv according to the patient's size, and use of iterative reconstruction technique. FINDINGS: Age-related atrophy and microvascular ischemic changes are appreciated. The ventricles and sulci are symmetric. Cedeño-white differentiation is maintained. There is no evidence for acute intracranial hemorrhage, mass/mass effect, pathology or infarction. No extra-axial fluid collection. Calvarium is intact. Paranasal sinuses and mastoid air cells are clear. IMPRESSION: Age related atrophy and microvascular ischemic changes. No acute intracranial hemorrhage, infarction, or mass/mass effect. <Electronically signed by Ananth Wray > 06/10/20 [id number]
--- NOTE | 2020-06-10 17:06 | REP ---
INDICATION: ALTERED MENTAL STATUS. COMPARISON: Comparison chest x-ray June 23, 2019. TECHNIQUE: Two views.. FINDINGS: There is blunting of the posterior and the left lateral pleural angles indicating small amounts of pleural fluid bilaterally. Moderate cardiac enlargement is observed. The lungs are somewhat hyperinflated but no infiltrate is seen. The aorta is tortuous and calcific. No acute bony abnormality is seen. IMPRESSION: Hyperinflation, cardiomegaly with small bilateral effusions consistent with mild CHF. No acute infiltrate seen.. <Electronically signed by Perez Figueroa > 06/10/20 [id number]
[2020-06-10 17:17] LABS: BASO % 0.5 % (0.0-1.0); EOS % 0.6 % (0.0-3.0); HEMATOCRIT 46.9 % (42.0-52.0); HEMOGLOBIN 14.5 g/dl (13.5-17.5); LYMPH # 0.7 10^3/uL (1.5-5.0); LYMPH % 10.8 % (24.0-44.0); MEAN CORPUSCULAR HGB CONC 30.9 g/dl (32.0-36.5); MEAN CORPUSCULAR VOLUME 96.9 fl (80.0-96.0); MONO # 0.7 10^3/uL (0.0-0.8); MONO % 10.3 % (0.0-5.0); NEUTROPHILS # 4.9 10^3/uL (1.5-8.5); NEUTROPHILS % 77.3 % (36.0-66.0); PLATELET COUNT, AUTOMATED 180 10^3/uL (150-450); RED BLOOD COUNT 4.84 10^6/uL (4.30-6.10); WHITE BLOOD COUNT 6.3 10^3/uL (4.0-10.0)
[2020-06-10 17:57] LABS: ACETAMINOPHEN LEVEL < 2.0 UG/ML (10.0-30.0); ALBUMIN 2.9 GM/DL (3.2-5.2); ALT/SGPT 32 U/L (12-78); BILIRUBIN,DIRECT 0.2 MG/DL (0.0-0.2); BILIRUBIN,TOTAL 0.4 MG/DL (0.2-1.0); BLOOD UREA NITROGEN 23 MG/DL (7-18); CARBON DIOXIDE LEVEL 35 MEQ/L (21-32); CHLORIDE LEVEL 101 MEQ/L (98-107); CK-MB VALUE MASS 9.3 NG/ML (<3.6); CPK CREATINE PHOSPHOKINASE 247 U/L (39-308); CREATININE FOR GFR 0.87 MG/DL (0.70-1.30); ETHYL ALCOHOL (ETHANOL) < 0.003 % (0.000-0.010); GLOMERULAR FILTRATION RATE > 60.0 (>49); GLUCOSE, FASTING 126 MG/DL (70-100); MB/CK RELATIVE INDEX 3.77 (< OR =4); POTASSIUM SERUM 3.1 MEQ/L (3.5-5.1); SALICYLATE LEVEL 2.9 MG/DL (5.0-30.0); SODIUM LEVEL 142 MEQ/L (136-145); TOTAL PROTEIN 5.5 GM/DL (6.4-8.2); TROPONIN I 0.03 NG/ML (< 0.10)
[2020-06-10] MEDS ORDERED: POTASSIUM CHLORIDE 10 MEQ SR TABLET PO ONE (19:00)
[2020-06-10 19:41] LABS: AMPHETAMINES LEVEL URINE NEGATIVE (NEGATIVE); BARBITURATES URINE NEGATIVE (NEGATIVE); BENZODIAZEPINES URINE NEGATIVE (NEGATIVE); CANNABINOIDS URINE POSITIVE (NEGATIVE); COCAINE METABOLITE URINE NEGATIVE (NEGATIVE); METHADONE URINE NEGATIVE (NEGATIVE); OPIATES URINE NEGATIVE (NEGATIVE); PHENCYCLIDINE URINE NEGATIVE (NEGATIVE)
[2020-06-10] MEDS ORDERED: ALBU8.5H INH (20:52)
[2020-06-10 21:27] LABS: RSV AMPLIFICATION NEGATIVE (NEGATIVE)
[2020-06-10 22:30] VITALS: BP 185/131
--- NOTE | 2020-06-10 23:02 | REPVR ---
PROCEDURE INFORMATION: Exam: MR Head Without Contrast Exam date and time: 06/10/2020 9:32 PM Age: 69 years old Clinical indication: Speech disturbance; Slurred speech; Additional info: CVA TECHNIQUE: Imaging protocol: MR of the head without contrast. COMPARISON: CT Head without contrast 06/10/2020 4:06 PM FINDINGS: Motion limited examination. Age-related volume loss. Major vascular flow voids at the skull base are preserved. No extra-axial fluid collection. No midline shift or intracranial mass effect. Nonspecific white matter gliosis, probable chronic microvascular ischemia. There are chronic lacunar infarcts involving the basal ganglia. No diffusion restriction. Visualized paranasal sinuses are clear. Small left-sided mastoid effusion. IMPRESSION: No acute intracranial abnormality. Electronically signed by: Leo Farah On 06/10/2020 23:02:59 PM
--- NOTE | 2020-06-10 23:04 | REPVR ---
PROCEDURE INFORMATION: Exam: MR Angiogram Head Without Contrast, Arteries Exam date and time: 06/10/2020 9:32 PM Age: 69 years old Clinical indication: Speech disturbance; Slurred speech; Additional info: CVA TECHNIQUE: Imaging protocol: MR angiogram head without contrast. Exam focused on the arteries. COMPARISON: MRA BRAIN W/O CONTRAST 03/19/2015 2:38 PM FINDINGS: ANTERIOR CIRCULATION: Right internal carotid artery: Intracranial segment is patent with no significant stenosis. No aneurysm. Right middle cerebral artery: No occlusion or significant stenosis. No aneurysm. Right anterior cerebral artery: Hypoplastic right A1 segment. Left internal carotid artery: Intracranial segment is patent with no significant stenosis. No aneurysm. Left middle cerebral artery: No occlusion or significant stenosis. No aneurysm. Left anterior cerebral artery: No occlusion or significant stenosis. No aneurysm. POSTERIOR CIRCULATION: Right vertebral artery: No occlusion or significant stenosis. No aneurysm. Left vertebral artery: Left vertebral artery is dominant. Basilar artery: No occlusion or significant stenosis. No aneurysm. Right posterior cerebral artery: Carotid dominant right posterior cerebral artery with hypoplastic right P1 segment. Left posterior cerebral artery: No occlusion or significant stenosis. No aneurysm. IMPRESSION: No hemodynamically significant stenosis or large vessel occlusion. Electronically signed by: Leo Farah On 06/10/2020 23:05:15 PM
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
--- NOTE | 2020-06-11 06:24 | ECGEPIP ---
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 : 1950 Requested By: PHANI Goldman Order Number: [id number] Reading MD: Julee Francisco Measurements Intervals [place] Rate: 98 P: 57 MS: 169 QRS: 6 QRSD: 105 T: 240 QT: 362 QTc: 464 Interpretive Statements SINUS RHYTHM WITH OCCASIONAL VENTRICULAR PREMATURE COMPLEXES POSSIBLE LEFT ATRIAL ENLARGEMENT INCOMPLETE RIGHT BUNDLE BRANCH BLOCK NONSPECIFIC ST & T-WAVE ABNORMALITY VS ISCHEMIA LATERAL LEADS LOW QRS VOLTAGE LIMB LEADS DELAYED R WAVE PROGRESSION CW 06/23/19 RATE SIMILAR IMPROVED INFERIOR LEAD ST T WAVE CHANGES LATERAL NONSPECIFIC ST T WAVE CHANGES VS ISCHEMIA CLINICAL CORRELATION ADVISED Electronically Signed on 06-11-2020 6:23:36 EST by Julee Francisco
== END 2020-06-10 22:30 | disposition left against medical advice (07) ==
LOC: M ED 14:48
DX: Z53.9 Procedure and treatment not carried out, unspecified reason (principal); G93.40 Encephalopathy, unspecified; R22.43 Localized swelling, mass and lump, lower limb, bilateral; I45.19 Other right bundle-branch block; I51.7 Cardiomegaly; F41.9 Anxiety disorder, unspecified; F10.10 Alcohol abuse, uncomplicated; F17.200 Nicotine dependence, unspecified, uncomplicated; Z79.82 Long term (current) use of aspirin; Z79.899 Other long term (current) drug therapy; I71.4 Abdominal aortic aneurysm, without rupture; J90 Pleural effusion, not elsewhere classified; J98.11 Atelectasis
CPT/HCPCS: 36415; 51701; 70450; 70544; 70551; 71046; 74174; 80048; 80076; 80307; 81001; 82140; 82550; 82553; 82565; 84443; 84484; 84520; 85025; 87631; 93005; 93041; 94760; 99285; G0480; Q9967

== ENCOUNTER → 2020-06-10 | Outpatient (CLI) | payer MEDICARE, OTHER ==
[~2020-06-10] MED LIST changes: +ALBU8.5H INH; +ISOVUE-370 76% 100ML VIAL As Ordered ONE
[2020-06-10 09:31] LABS: BLOOD UREA NITROGEN 18 MG/DL (7-18); CREATININE FOR GFR 0.78 MG/DL (0.70-1.30); GLOMERULAR FILTRATION RATE > 60.0 (>49)
--- NOTE | 2020-06-10 10:33 | REP ---
INDICATION: ABDOMINAL AORTIC ANEURYSM, WITHOUT RUPTURE COMPARISON: 09/26/2019 TECHNIQUE: Axial contrast-enhanced images from the lung bases to the pubic symphysis with coronal and sagittal reformations using angiographic technique and protocol including multiplanar MIP reformations as well as volume rendered CT aortic angiogram. This CT examination was performed using the following dose reduction techniques: Automated exposure control, adjustment of mA and/or kv according to the patient's size, and use of iterative reconstruction technique. FINDINGS: The aorta again demonstrates moderate partially calcified atherosclerotic changes with a fusiform infrarenal abdominal aortic aneurysm again noted. Aneurysm measures 4.3 x 4.4 cm maximal AP and transverse diameter (previously measuring 4.0 x 4.4 cm) and approximately 5.7 cm in craniocaudal length originating approximately 2.5 cm below the left renal artery and tapering to normal above the level of the bifurcation to common iliac arteries. There is no evidence for dissection or extravasation. The superior mesenteric artery, celiac axis, bilateral renal arteries appear patent although atherosclerotic changes at the origins of the bilateral renal arteries and superior mesenteric arteries noted. Current examination demonstrates marked diffuse fluid density ascites which represents a new finding along with moderate anasarca. Liver, spleen, pancreas, gallbladder, and bilateral adrenal glands are grossly normal in appearance. The kidneys are unremarkable in appearance and demonstrate symmetric enhancement. There is no evidence for bowel obstruction. Colonic and sigmoid diverticulosis noted. No evidence for pneumoperitoneum. Pelvis demonstrates normal bladder and age-appropriate prostate/seminal vesicles. Musculoskeletal structures demonstrate degenerative changes. Moderate bilateral pleural effusions (left greater than right) along with partial collapse to the left lower lobe and bilateral passive atelectasis noted. Cardiomegaly is appreciated without pericardial effusion.. IMPRESSION: 1. Infrarenal abdominal aortic aneurysm along with atherosclerotic disease as described above which may be slightly increased from prior examination. 2. New finding includes marked ascites, moderate anasarca, and bilateral pleural effusions requiring further investigation. 3. Lung bases also demonstrate atelectasis and partial left lower lobe collapse along with cardiomegaly. <Electronically signed by Ananth Wray > 06/10/20 [id number]
== END ==
LOC: M LAB 08:48
PROVIDERS: ATTEND Surgery Vascular Surgery
DX: Z01.812 Encounter for preprocedural laboratory examination (principal); I71.4 Abdominal aortic aneurysm, without rupture; J90 Pleural effusion, not elsewhere classified; J98.11 Atelectasis; I51.7 Cardiomegaly

== ENCOUNTER 2020-08-08 16:06 | Inpatient (IN) | payer MEDICARE, OTHER ==
[~2020-08-08] VITALS: Ht 177.8 cm; Wt 67.2 kg
[~2020-08-08 16:06] MED LIST changes: +ALBU8.5H INH
--- NOTE | 2020-08-08 16:49 | REP ---
INDICATION: Altered Mental Status COMPARISON: 06/10/2020 TECHNIQUE: Portable AP view of the chest FINDINGS: The mediastinum and cardiac silhouette are stable and within normal limits for portable technique. Lung lopez demonstrate diffuse chronic interstitial changes similar to prior examination as well as similar ill-defined left lower lobe/retrocardiac opacity. IMPRESSION: Left lower lobe/retrocardiac opacity. <Electronically signed by Ananth Wray > 08/08/20 [id number]
[2020-08-08 16:57] LABS: BASO % 0.3 % (0.0-1.0); EOS % 0.1 % (0.0-3.0); HEMOGLOBIN 16.6 g/dl (13.5-17.5); LYMPH # 0.9 10^3/uL (1.5-5.0); LYMPH % 12.3 % (24.0-44.0); MEAN CORPUSCULAR HEMOGLOBIN 29.2 pg (27.0-33.0); MEAN CORPUSCULAR HGB CONC 31.3 g/dl (32.0-36.5); MEAN CORPUSCULAR VOLUME 93.1 fl (80.0-96.0); MONO # 0.6 10^3/uL (0.0-0.8); MONO % 9.2 % (2.0-8.0); NEUTROPHILS # 5.4 10^3/uL (1.5-8.5); NEUTROPHILS % 77.4 % (36.0-66.0); PLATELET COUNT, AUTOMATED 255 10^3/uL (150-450); RED BLOOD COUNT 5.69 10^6/uL (4.30-6.10); WHITE BLOOD COUNT 6.9 10^3/uL (4.0-10.0)
[2020-08-08 17:15] LABS: INR 1.14; PROTHROMBIN TIME 14.9 SECONDS (12.5-14.3)
[2020-08-08 17:17] LABS: PARTIAL THROMBOPLASTIN TIME 32.6 SECONDS (24.2-38.5)
--- NOTE | 2020-08-08 17:33 | REPVR ---
PROCEDURE INFORMATION: Exam: CT Head Without Contrast Exam date and time: 08/08/2020 4:57 PM Age: 69 years old Clinical indication: Altered mental status/memory loss TECHNIQUE: Imaging protocol: Computed tomography of the head without contrast. Radiation optimization: All CT scans at this facility use at least one of these dose optimization techniques: automated exposure control; mA and/or kV adjustment per patient size (includes targeted exams where dose is matched to clinical indication); or iterative reconstruction. COMPARISON: CT Head without contrast 06/10/2020 4:06 PM FINDINGS: Brain: There is no acute intracranial hemorrhage, cerebral edema, or midline shift. Chronic microvascular ischemic changes are seen in the periventricular white matter. There are chronic lacunar infarcts noted within the bilateral basal ganglia. Age-related cerebral and cerebellar volume loss is present. Cerebral ventricles: No hydrocephalus. Bones/joints: No acute fracture. Paranasal sinuses: There is no acute sinusitis. Mastoid air cells: The mastoid air cells are clear. Orbital cavity: The included orbital structures are unremarkable. Vasculature: Atherosclerotic calcifications are seen involving the cavernous carotid arteries. Soft tissues: Unremarkable. IMPRESSION: 1. No acute intracranial abnormality. 2. Atrophy and chronic deep white matter ischemic changes. Electronically signed by: Yan Adames On 08/08/2020 17:33:29 PM
[2020-08-08 17:37] LABS: RSV AMPLIFICATION NEGATIVE (NEGATIVE)
[2020-08-08 17:46] LABS: ACETAMINOPHEN LEVEL < 2.0 UG/ML (10.0-30.0); ALBUMIN 3.4 GM/DL (3.2-5.2); ALT/SGPT 23 U/L (12-78); AMYLASE 17 U/L (25-115); BILIRUBIN,DIRECT 0.8 MG/DL (0.0-0.2); BILIRUBIN,TOTAL 1.3 MG/DL (0.2-1.0); BLOOD UREA NITROGEN 14 MG/DL (7-18); CARBON DIOXIDE LEVEL 35 MEQ/L (21-32); CHLORIDE LEVEL 92 MEQ/L (98-107); CPK CREATINE PHOSPHOKINASE 225 U/L (39-308); CREATININE FOR GFR 0.98 MG/DL (0.70-1.30); ETHYL ALCOHOL (ETHANOL) 0.003 % (0.000-0.010); GLOMERULAR FILTRATION RATE > 60.0 (>49); GLUCOSE, FASTING 91 MG/DL (70-100); LIPASE 94 U/L (73-393); MB/CK RELATIVE INDEX 5.78 (< OR =4); POTASSIUM SERUM 3.9 MEQ/L (3.5-5.1); SALICYLATE LEVEL 3.9 MG/DL (5.0-30.0); SODIUM LEVEL 133 MEQ/L (136-145); TOTAL PROTEIN 6.4 GM/DL (6.4-8.2); TROPONIN I 0.04 NG/ML (< 0.10)
[2020-08-08] MEDS ORDERED: IPRATROPIUM 0.5MG/ALBUTEROL 2.5MG INH SOL UD 3ML (DUONEB) NEB ONE (18:15)
[2020-08-08] MEDS ORDERED: methylPREDNISolone 125MG 2ML VIAL IV ONE (18:15)
[2020-08-08] MEDS ORDERED: ALBUTEROL SULFATE 2.5 MG/0.5 ML INH NEB SOLN INH ONE (18:15)
[2020-08-08] MEDS ORDERED: ISOVUE-370 76% 100ML VIAL As Ordered ONE (18:45)
[2020-08-08 19:11] LABS: AMPHETAMINES LEVEL URINE NEGATIVE (NEGATIVE); BARBITURATES URINE NEGATIVE (NEGATIVE); BENZODIAZEPINES URINE NEGATIVE (NEGATIVE); CANNABINOIDS URINE NEGATIVE (NEGATIVE); COCAINE METABOLITE URINE NEGATIVE (NEGATIVE); METHADONE URINE NEGATIVE (NEGATIVE); OPIATES URINE NEGATIVE (NEGATIVE); PHENCYCLIDINE URINE NEGATIVE (NEGATIVE)
--- NOTE | 2020-08-08 20:43 | REPVR ---
PROCEDURE INFORMATION: Exam: CT Abdomen And Pelvis With Contrast Exam date and time: 08/08/2020 8:02 PM Age: 69 years old Clinical indication: Abdominal pain; Additional info: RO pe, assess abd (see old CT 06/27) TECHNIQUE: Imaging protocol: Computed tomography of the abdomen and pelvis with contrast. Radiation optimization: All CT scans at this facility use at least one of these dose optimization techniques: automated exposure control; mA and/or kV adjustment per patient size (includes targeted exams where dose is matched to clinical indication); or iterative reconstruction. Contrast material: ISOVUE 370; Contrast volume: 100 ml; Contrast route: INTRAVENOUS (IV); COMPARISON: CT ANGIO ABD/PEL 06/10/2020 10:05 AM FINDINGS: Lungs: Bibasilar atelectasis, left greater than right. Pleural spaces: Small left pleural effusion. Liver: Normal. No mass. Gallbladder and bile ducts: Normal. No calcified stones. No ductal dilation. Pancreas: Normal. No ductal dilation. Spleen: Normal. No splenomegaly. Adrenal glands: Normal. No mass. Kidneys and ureters: Normal. No hydronephrosis. Stomach and bowel: Moderate diverticulosis is present in the distal colon. No diverticulitis. Several loops of small bowel demonstrate thickened levine likely related to hypoproteinemia although enteritis not excluded. Appendix: No evidence of appendicitis. Intraperitoneal space: There is a moderate amount of free intraperitoneal fluid present. Vasculature: Stable infrarenal abdominal aortic aneurysm measures 4.7 cm maximum AP dimension with a craniocaudad extent of 6.2 cm beginning below the level of the renal arteries and tapering before the bifurcation. Atherosclerotic calcifications demonstrated in the abdominal aorta and both iliac arteries, the latter of which are ectatic. 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 Lymph nodes: Unremarkable. No enlarged lymph nodes. Urinary bladder: Unremarkable as visualized. Reproductive: Unremarkable as visualized. Bones/joints: Moderate central spinal stenosis L2-L3, moderate to severe central spinal stenosis L3-L4, L4-L5, and L5-S1. Lumbarized 1st sacral segment. Soft tissues: There is soft tissue edema demonstrated in the abdominal wall, flanks and buttock regions consistent with anasarca. IMPRESSION: 1. There is a moderate amount of free intraperitoneal fluid present. 2. Anasarca. 3. Stable infrarenal abdominal aortic aneurysm as described above. 4. Moderate diverticulosis is present in the distal colon. No diverticulitis. 5. Several loops of small bowel demonstrate thickened levine likely related to hypoproteinemia although enteritis not excluded. Electronically signed by: Nirav Rehman On 08/08/2020 20:43:32 PM
--- NOTE | 2020-08-08 20:48 | REPVR ---
PROCEDURE INFORMATION: Exam: CT Angiography Chest With Contrast Exam date and time: 08/08/2020 8:02 PM Age: 69 years old Clinical indication: Chest pain; Additional info: RO pe, assess abd (see old CT 06/27) TECHNIQUE: Imaging protocol: Computed tomographic angiography of the chest with contrast. 3D rendering (Not supervised by radiologist): MIP and/or 3D reconstructed images were created by the technologist. Radiation optimization: All CT scans at this facility use at least one of these dose optimization techniques: automated exposure control; mA and/or kV adjustment per patient size (includes targeted exams where dose is matched to clinical indication); or iterative reconstruction. Contrast material: ISOVUE 370; Contrast volume: 100 ml; Contrast route: INTRAVENOUS (IV); COMPARISON: CR PORTABLE CHEST X-RAY 08/08/2020 4:45 PM FINDINGS: Pulmonary arteries: There are no pulmonary emboli. There is enlargement of the central pulmonary arteries, findings which can be associated with pulmonary arterial hypertension which should be correlated clinically. Aorta: There is fusiform dilatation of the ascending thoracic aorta which measures 3.8 cm. maximally. There is no dissection or saccular component. Diffuse ectasia with atherosclerotic changes of the thoracic aorta. Lungs: Bilateral apical pleuroparenchymal scarring. Stable atelectasis in the posterior segment of both upper lobes and both lower lobes. Pleural spaces: Small bilateral pleural effusions, left greater than right. Heart: Unremarkable. No cardiomegaly. No pericardial effusion. Lymph nodes: Unremarkable. No enlarged lymph nodes. Bones/joints: The spine demonstrates mild degenerative changes. Soft tissues: Unremarkable. IMPRESSION: 1. Small bilateral pleural effusions, left greater than right. 2. There is fusiform dilatation of the ascending thoracic aorta which measures 3.8 cm. maximally. There is no dissection or saccular component. 3. There are no pulmonary emboli. 4. There is enlargement of the central pulmonary arteries, findings which can be associated with pulmonary arterial hypertension which should be correlated clinically. 5. No acute pulmonary parenchymal infiltrates. Electronically signed by: Nirav Rehman On 08/08/2020 20:48:42 PM
[2020-08-08 22:11] LABS: NT-PRO BNP 4496 PG/ML (<125)
[2020-08-08 22:25] VITALS: BP 161/99
[2020-08-08] MEDS ORDERED: clonazePAM 0.5 MG TAB PO PRN (23:00)
[2020-08-08] MEDS ORDERED: ALBUTEROL 90 MCG/ACT 8GM HFA INHALER INH PRN (23:00)
[2020-08-08] MEDS ORDERED: PILL CUTTER 1 EACH XX PRN (23:05)
--- NOTE | 2020-08-08 23:49 | HPEPDOC ---
[facility] Medical History & Physical Date of Admission Aug 08, 2020 Date of Service: Aug 08, 2020 History and Physical CHIEF COMPLAINT: "I don't remember." HISTORY OF PRESENT ILLNESS: (History obtained from patient's sister Flor Anderson [phone]) 69-year-old male with history of alcohol abuse, quit drinking in 1993 without documented history of liver cirrhosis, [id number] history of tobacco smoking, without documented history of COPD, right thalamic lacunar strokes, ascending thoracic aortic aneurysm at 3.8 cm, followed by vascular surgery, Dr. Martin, medical noncompliance, leaving AGAINST MEDICAL ADVICE and missing primary care physician appointments, chronic anasarca with no prior evaluation, anxiety disorder with missed appointments with Dr. Roya Geean was sent to the emergency room from his primary care doctor's appointment today due to uncontrolled blood pressure 225/126 and increasing abdominal ascites according to the sister. Patient has been disoriented for a long time and has not seen a p hysician for 2 months. He was seen in the ER in June 2020, but left AGAINST MEDICAL ADVICE. Patient could not provide review of system. He did not complain of any shortness of breath, headaches or changes in vision, chest pain, pressure at the bedside. In the emergency room, patient remained confused and could not provide any history, but oriented to where he was and is name., Glucose was 91. CT of the head had no acute intracranial pathology. Ammonia level was normal, less than 10. . Urine toxicology screen was negative. Sodium was normal at 133. He was afebrile, and CT chest, abdomen and pelvis has no signs of infection. CT chest showed small bilateral pleural effusions. CT abdomen pelvis shows anasarca and 3.8 cm ascending thoracic aneurysm. Hospitalist was asked to admit the ruiz ent for hypertensive urgency, acute on chronic encephalopathy, anasarca with bilateral pleural effusions and ascites, and acute diastolic heart failure with BNP of 4496. PAST MEDICAL HISTORY: history of liver cirrhosis, [id number]-cfad history of tobacco smoking, without documented history of COPD, right thalamic lacunar strokes, 4.7 cm infrarenal abdominal aortic aneurysm/3.8 cm ascending thoracic aortic aneurysm , followed by vascular surgery, Dr. Martin, medical noncompliance, leaving AGAINST MEDICAL ADVICE and missing primary care physician appointments, chronic anasarca, protein calorie malnutrition. Nicotine dependence. History of hypothermia due to cold ambient temperature, GRADE 2 left ventricular diastolic dysfunction. Trace mitral insufficiency. 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 PAST SURGICAL HISTORY: None SOCIAL HISTORY: Next of kin , Flor Anderson, patient's sister Lives alone, has no healthcare proxy Smoke cigarettes since the age of 14. 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 REVIEW OF SYSTEMS: Patient is confused. Review of system could not be obtained HOME MEDICATIONS: Please see below. PHYSICAL EXAMINATION: VITAL SIGNS: See below GENERAL APPEARANCE: Awake, alert, oriented to person and place only. No respiratory distress icterus, jaundice, able to speak in full sentences HEENT: Face is symmetric. Tongue is midline. Dry mucous membranes. No thyromeg lashonda or cervical lymphadenopathy CARDIOVASCULAR: S1, S2 regular rate rhythm. Nondisplaced PMI LUNGS: Diminished breath sounds at bilateral bases. No wheezing ABDOMEN: Positive bowel sounds 4 quadrants, soft, positive fluid wave, nontender, nondistended. Positive abdominal bruit EXTREMITIES: Multiple skin excoriations. No signs of cellulitis. Trace lower extremity edema bilaterally NEUROLOGICAL: Awake, alert, oriented to person and place only. Motor function is 5 out of 54 extremities. No sensory disturbance. Face is symmetric. Tongue is midline. No pronator drift. No dysmetria on finger to nose testing. Speech is fluent without expressive aphasia. SKIN: Bilateral tattoos upper extremities , multiple excoriations in bilateral lower extremities. No signs of cellulitis LABORATORY DATA: See below. IMAGING: Exam: CT Head Without Contrast Exam date and time: 08/08/2020 4:57 PM Age: 69 years old Clinical indication: Altered mental status/memory loss TECHNIQUE: Imaging protocol: Computed tomography of the head without contrast. Radiation optimization: All CT scans at this facility use at least one of these dose optimization techniques: automated exposure control; mA and/or kV adjustment per patient size (includes targeted exams where dose is matched to clinical indication); or iterative reconstruction. COMPARISON: CT Head without contrast 06/10/2020 4:06 PM FINDINGS: Brain: There is no acute intracranial hemorrhage, cerebral edema, or midline shift. Chronic microvascular ischemic changes are seen in the periventricular white matter. There are chronic lacunar infarcts noted within the bilateral basal ganglia. Age-related cerebral and cerebellar volume loss is present. Cerebral ventricles: No hydrocephalus. Bones/joints: No acute fracture. Paranasal sinuses: There is no acute sinusitis. Mastoid air cells: The mastoid air cells are clear. Orbital cavity: The included orbital structures are unremarkable. Vasculature: Atherosclerotic calcifications are seen involving the cavernous carotid arteries. Soft tissues: Unremarkable. IMPRESSION: 1. No acute intracranial abnormality. 2. Atrophy and chronic deep white matter ischemic changes. Electronically signed by: Yan Adames On 08/08/2020 17:33:29 PM Portable AP view of the chest FINDINGS: The mediastinum and cardiac silhouette are stable and within normal limits for portable technique. Lung lopez demonstrate diffuse chronic interstitial changes similar to prior examination as well as similar ill-defined left lower lobe/retrocardiac opacity. IMPRESSION: Left lower lobe/retrocardiac opacity. <Electronically signed by Ananth Wray > 08/08/20 1645 MICROBIOLOGY: Please see below. ECHOCARDIOGRAM: DATE OF PROCEDURE: 06/27/2019 REFERRING PHYSICIAN: Dr. Torrez INDICATION: Tachycardia. Height 178 cm, weight 52 kg. DIMENSIONS: IVS: 1.2 LV: 3.8 LVPW: 1.2 LA: 3.0 Aorta: 3.9 IVC: 1.3 Mitral E wave velocity: 59 A wave: 70 E prime septal: 4.0 E prime lateral: 6.0 FINDINGS: The study is of fair technical quality. The patient is in sinus rhythm. Left ventricle is normal size and has normal systolic function, estimated ejection fraction (EF) around 60% Based on technical limitations of the study, I cannot rule out subtle wall motion abnormalities. The right ventricle appears to be normal size and systolic function as well. Aortic valve is mildly sclerotic but mobility of cusps is preserved. There are mild degenerative abnormalities of mitral valve as well. Tricuspid and pulmonic valves appear normal. No pericardial effusion is noted. Inferior vena cava is normal size. Aortic root is mildly dilated at 3.9 cm. Aortic arch was not seen. There is some degree of atherosclerosis apparent in abdominal aorta. Doppler interrogation of aortic valve reveals no stenosis and trace insufficiency. There is also trace mitral insufficiency. Tricuspid valve is functionally competent. Same applies for pulmonic valve. Mitral inflow pattern and tissue Doppler imaging of mitral annulus revealed grade 1 diastolic dysfunction. CONCLUSIONS: 1. Study is of fair technical quality, patient is in sinus rhythm. 2. Normal left ventricular (LV) size with mild left ventricular hypertrophy (LVH) and preserved LV systolic function. Grade 1 diastolic dysfunction. 3. Aortic sclerosis but no stenosis, only trace insufficiency. 4. Trace mitral insufficiency. 5. Normal central venous pressure. 6. Unable to estimate pulmonary artery pressure. 7. Borderline dilated aortic root (3.9 cm). COMMENT: Subacute bacterial endocarditis (SBE) prophylaxis is not recommended. Study does not provide obvious explanation for cause of tachycardia Exam: CT Angiography Chest With Contrast Exam date and time: 08/08/2020 8:02 PM Age: 69 years old Clinical indication: Chest pain; Additional info: RO pe, assess abd (see old CT 06/27) TECHNIQUE: Imaging protocol: Computed tomographic angiography of the chest with contrast. 3D rendering (Not supervised by radiologist): MIP and/or 3D reconstructed images were created by the technologist. Radiation optimization: All CT scans at this facility use at least one of these dose optimization techniques: automated exposure control; mA and/or kV adjustment per patient size (includes targeted exams where dose is matched to clinical indication); or iterative reconstruction. Contrast material: ISOVUE 370; Contrast volume: 100 ml; Contrast route: INTRAVENOUS (IV); COMPARISON: CR PORTABLE CHEST X-RAY 08/08/2020 4:45 PM FINDINGS: Pulmonary arteries: There are no pulmonary emboli. There is enlargement of the central pulmonary arteries, findings which can be associated with pulmonary arterial hypertension which should be correlated clinically. Aorta: There is fusiform dilatation of the ascending thoracic aorta which measures 3.8 cm. maximally. There is no dissection or saccular component. Diffuse ectasia with atherosclerotic changes of the thoracic aorta. Lungs: Bilateral apical pleuroparenchymal scarring. Stable atelectasis in the posterior segment of both upper lobes and both lower lobes. Pleural spaces: Small bilateral pleural effusions, left greater than right. Heart: Unremarkable. No cardiomegaly. No pericardial effusion. Lymph nodes: Unremarkable. No enlarged lymph nodes. Bones/joints: The spine demonstrates mild degenerative changes. Soft tissues: Unremarkable. IMPRESSION: 1. Small bilateral pleural effusions, left greater than right. 2. There is fusiform dilatation of the ascending thoracic aorta which measures 3.8 cm. maximally. There is no dissection or saccular component. 3. There are no pulmonary emboli. 4. There is enlargement of the central pulmonary arteries, findings which can be associated with pulmonary arterial hypertension which should be correlated clinically. 5. No acute pulmonary parenchymal infiltrates. Electronically signed by: Nirav Rehman On 08/08/2020 20:48:42 PM Exam: CT Abdomen And Pelvis With Contrast Exam date and time: 08/08/2020 8:02 PM Age: 69 years old Clinical indication: Abdominal pain; Additional info: RO pe, assess abd (see old CT 06/27) TECHNIQUE: Imaging protocol: Computed tomography of the abdomen and pelvis with contrast. Radiation optimization: All CT scans at this facility use at least one of these dose optimization techniques: automated exposure control; mA and/or kV adjustment per patient size (includes targeted exams where dose is matched to clinical indication); or iterative reconstruction. Contrast material: ISOVUE 370; Contrast volume: 100 ml; Contrast route: INTRAVENOUS (IV); COMPARISON: CT ANGIO ABD/PEL 06/10/2020 10:05 AM FINDINGS: Lungs: Bibasilar atelectasis, left greater than right. Pleural spaces: Small left pleural effusion. Liver: Normal. No mass. Gallbladder and bile ducts: Normal. No calcified stones. No ductal dilation. Pancreas: Normal. No ductal dilation. Spleen: Normal. No splenomegaly. Adrenal glands: Normal. No mass. Kidneys and ureters: Normal. No hydronephrosis. Stomach and bowel: Moderate diverticulosis is present in the distal colon. No diverticulitis. Several loops of small bowel demonstrate thickened levine likely related to hypoproteinemia although enteritis not excluded. Appendix: No evidence of appendicitis. Intraperitoneal space: There is a moderate amount of free intraperitoneal fluid present. Vasculature: Stable infrarenal abdominal aortic aneurysm measures 4.7 cm maximum AP dimension with a craniocaudad extent of 6.2 cm beginning below the level of the renal arteries and tapering before the bifurcation. Atherosclerotic calcifications demonstrated in the abdominal aorta and both iliac arteries, the latter of which are ectatic. 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 Lymph nodes: Unremarkable. No enlarged lymph nodes. Urinary bladder: Unremarkable as visualized. Reproductive: Unremarkable as visualized. Bones/joints: Moderate central spinal stenosis L2-L3, moderate to severe central spinal stenosis L3-L4, L4-L5, and L5-S1. Lumbarized 1st sacral segment. Soft tissues: There is soft tissue edema demonstrated in the abdominal wall, flanks and buttock regions consistent with anasarca. IMPRESSION: 1. There is a moderate amount of free intraperitoneal fluid present. 2. Anasarca. 3. Stable infrarenal abdominal aortic aneurysm as described above. 4. Moderate diverticulosis is present in the distal colon. No diverticulitis. 5. Several loops of small bowel demonstrate thickened levine likely related to hypoproteinemia although enteritis not excluded. Electronically signed by: Nirav Rehman On 08/08/2020 20:43:32 PM ASSESSMENT/PLAN: 69-year-old male with history of alcohol abuse, quit drinking in 1993 without documented history of liver cirrhosis, 09-[id number]-[id number] history of tobacco smoking, without documented history of COPD, right thalamic lacunar strokes, ascending thoracic aortic aneurysm at 3.8 cm, followed by vascular surgery, Dr. Martin, medical noncompliance, leaving AGAINST MEDICAL ADVICE and missing primary care physician appointments, chronic anasarca with no prior evaluation, was sent to the emergency room from his primary care doctor's appointment today due to uncontrolled blood pressure 225/126 and increasing abdominal ascites according to the sister. Patient has been disoriented for a long time and has not seen a physician for 2 months. He was seen in the ER in June 2020, but left AGAINST MEDICAL ADVICE. Patient could not provide review of system. He did not complain of any shortness of breath, headaches or changes in vision, chest pain, pressure at the bedside. In the emergency room, patient remained confused and could not provide any history, but oriented to where he was and is name., Glucose was 91. CT of the head had no acute intracranial pathology. Ammonia level was normal, less than 10. . Urine toxicology screen was negative. Sodium was normal at 133. He was afebrile, and CT chest, abdomen and pelvis has no signs of infection. CT chest showed small bilateral pleural effusions. CT abdomen pelvis shows anasarca and 3.8 cm ascending thoracic aneurysm. Hospitalist was asked to admit the patient for hypertensive urgency with known history of 3.8 cm ascending thoracic aortic aneurysm, acute on chronic encephalopathy, anasarca with bilateral pleural effusions and ascites, with possible decompensated liver disease and acute diastolic heart failure with BNP of 4496. Hypertensive urgency -Due to history of thoracic and abdominal aortic aneurysms, patient has been given atenolol 25 mg twice a day to go blood pressure 120-1 30 mmhg. Lasix for diuresis Anasarca -On strict I's and O's, daily weights and 2 L fluid restrictions. Lasix 40 mg IV every 6 hourly 3 doses and reassess clinically in the morning. -If patient does not respond well to Lasix. He may need paracentesis for diagnostic purposes as well to rule out portal hypertension and liver disease. -To further evaluate patient's anasarca. Check for proteinuria with 24-hour protein, SPEP, UPEP, rule out lupus with anti-Pollard, [id number]-bvehmazy DNA A name. Check complement levels, cryoglobulins, hepatitis profile. Acute diastolic congestive heart failure exacerbation with bilateral pleural effusions and BNP of 4496 -Telemetry. IV Lasix every 6 hourly with holding parameters. Strict I's and O's, daily weights, 2 L fluid restriction. Cycle cardiac markers. Patient had an echo in 2019, which will not be repeated -Ejection fraction 60% with preserved systolic function without significant valvular disease. Acute metabolic encephalopathy 3.8 cm ascending thoracic aortic aneurysm/ infrarenal abdominal aortic aneurysm measures 4.7 cm maximum AP dimension with a craniocaudad extent of 6.2 cm -On atenolol 25 mg twice a day for better blood pressure control. Outpatient follow-up with vascular surgery. Patient has been advised to stop smoking, but refuses History of right thalamic strokes -Check lipid panel, A1c in the morning. Control blood pressure to goal of 120-1 30 mmHg, tobacco cessation counseling has been provided. Active tobacco abuse with more than 72-[id number]-[id number] history of smoking -Refused nicotine patch, tobacco cessation counseling has been provided Protein calorie malnutrition -Check prealbumin History of alcohol abuse -Quit in 1993. Anxiety disorder -On chronic clonazepam. Sees psychiatrist, Dr. 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 -No current complaints. Diet: 2 g sodium DVT prophylaxis: Lovenox CODE STATUS: Full code. Sister is requesting social work consult to obtain a legal guardian. Sister is not interested in becoming a healthcare proxy for the patient. Vital Signs Vital Signs Date Time Temp Pulse Resp B/P (MAP) Pulse Ox O2 Delivery O2 Flow Rate FiO2 08/08/20 22:25 97.9 101 20 161/99 (119) 93 Nasal Cannula 2.0 Laboratory Data Labs 24H Laboratory Tests 2 08/08/20 16:16: Immature Granulocyte % (Auto) 0.7, Neutrophils (%) (Auto) 77.4H, Lymphocytes (%) (Auto) 12.3L, Monocytes (%) (Auto) 9.2H, Eosinophils (%) (Auto) 0.1, Basophils (%) (Auto) 0.3, Neutrophils # (Auto) 5.4, Lymphocytes # (Auto) 0.9L, Monocytes # (Auto) 0.6, Eosinophils # (Auto) 0.0, Basophils # (Auto) 0.0, Nucleated Red Blood Cells % (auto) 0.0, Anion Gap 6L, Glomerular Filtration Rate > 60.0, Lac tic Acid Level 2.2*H, Calcium Level 9.0, Total Bilirubin 1.3H, Direct Bilirubin 0.8H, Aspartate Amino Transf (AST/SGOT) 33, Alanine Aminotransferase (ALT/SGPT) 23, Alkaline Phosphatase 119H, Ammonia < 10, Total Creatine Kinase 225, Creatine Kinase MB 13.0H, Creatine Kinase MB Relative Index 5.78H, Troponin I 0.04, XC-Atz-P-Type Natriuretic Peptide 4496H, Total Protein 6.4, Albumin 3.4, Albumin/Globulin Ratio 1.1, Amylase Level 17L, Lipase 94, Thyroid Stimulating Hormone (TSH) 2.150, Salicylates Level 3.9L, Acetaminophen Level < 2.0L, Ethyl Alcohol Level 0.003 08/08/20 16:17: Prothrombin Time 14.9H, Prothromb Time International Ratio 1.14, Activated Partial Thromboplast Time 32.6 08/08/20 16:32: Urine Color YELLOW, Urine Appearance CLEAR, Urine pH 6.0, Urine Specific [place] 1.008, Urine Protein NEGATIVE, Urine Glucose (UA) NEGATIVE, Urine Ketones 1+H, Urine Blood 1+H, Urine Nitrite NEGATIVE, Urine Bilirubin NEGATIVE, Urine Urobilinogen 4.0H, Urine Leukocyte Esterase NEGATIVE, Urine WBC (Auto) 0, Urine RBC (Auto) 0, Urine Hyaline Casts (Auto) 1, Urine Bacteria (Auto) NEGATIVE, Urine Squamous Epithelial Cells 0, Urine Mucus (Auto) SMALL, Urine Sperm (Auto) , Urine Opiates Screen NEGATIVE, Urine Methadone Screen NEGATIVE, Urine Barbiturates Screen NEGATIVE, Urine Phencyclidine Screen NEGATIVE, Urine Amphetamines Screen NEGATIVE, Urine Benzodiazepines Screen NEGATIVE, Urine Cocaine Metabolite Screen NEGATIVE, Urine Cannabinoids Screen NEGATIVE 08/08/20 16:54: Coronavirus (COVID-19)(PCR) NEGATIVE, Influenza Type A (RT-PCR) NEGATIVE, Influenza Type B (RT-PCR) NEGATIVE, Respiratory Syncytial Virus (PCR) NEGATIVE 08/08/20 17:15: Bedside Glucose (Misc Panel) 106 08/08/20 18:34: POC pH (Misc Panel) 7.395, POC Base Excess (Misc Panel) 8.0H, POC Saturated Percent O2 (Misc) 92L, POC pO2 (Misc Panel) 65.0L, POC pCO2 (Misc Panel) 53.4H, POC HCO3 (Misc Panel) 32.7H, POC Total CO2 (Misc Panel) 34.0H 08/08/20 22:27: CBC/BMP Laboratory Tests 08/08/20 16:16 Microbiology Microbiology 08/08/20 Blood Culture, Received Pending 08/08/20 Blood Culture, Received Pending Home Medications Scheduled Aspirin (Aspirin EC) 81 Mg Tablet.dr, 81 MG PO DAILY Folic Acid (Folic Acid) 1 Mg Tab, 1 MG PO DAILY Venlafaxine HCl (Venlafaxine HCl) 75 Mg Tab, 75 MG PO DAILY Scheduled PRN Albuterol Sulfate (Albuterol Sulfate Hfa) 8.5 Gm Hfa.aer.ad, 2 PUFFS INH Q4H PRN for SHORTNESS OF BREATH Clonazepam (Klonopin) 0.5 Mg Tab, 0.25 MG PO BID PRN for ANXIETY Allergies Coded Allergies: No Known Allergies (Unverified , 03/20/15) A-FIB/CHADSVASC A-FIB History Current/History of A-Fib/PAF?: No Current PO Anticoag Therapy: No Age/Risk Factor Scoring CHADSVASC: CHADSVASC Response (Comments) Value Age Risk Factor Age 65-74 years old 1 Hx of CHF Yes 1 Hx of HTN Yes 1 Hx of Stroke/TIA/or VTE Yes 2 Hx of Diabetes No 0 Hx of Vascular Disease Yes 1 Total 6 Treatment Treatment ordered: NONE FAIZAN WIN MD Aug 08, 2020 23:24
[2020-08-08] MEDS ORDERED: LEVALBUTEROL 1.25 MG/0.5 ML CONCENTRATE NEB INH PRN (23:55)
[2020-08-09] VITALS (7 sets, daily range): BP systolic 100–178; BP diastolic 62–102
[2020-08-09] MEDS: atenoloL 25 MG TAB PO SCH ×3 (00:19→22:41)
[2020-08-09] MEDS: FUROSEMIDE 40MG/4ML VIAL (J1940) IV SCH ×3 (00:19→10:53)
[2020-08-09] MEDS: amLODIPine 5 MG TAB PO SCH ×3 (00:52→21:00)
[2020-08-09 05:03] LABS: TOTAL PROTEIN 5.7 GM/DL (6.4-8.2)
[2020-08-09 05:05] LABS: CHOLESTEROL LEVEL 150 MG/DL (<200); CHOLESTEROL RISK RATIO 4.285 (<5); COMPLEMENT C3 83 MG/DL (90-180); COMPLEMENT C4 17 MG/DL (10-40); CPK CREATINE PHOSPHOKINASE 122 U/L (39-308); HDL CHOLESTEROL 35 MG/DL (>40); LDL CHOLESTEROL 89 MG/DL (<100); MB/CK RELATIVE INDEX 7.38 (< OR =4); NON-HDL-C 115 MG/DL; PREALBUMIN 7.6 MG/DL (20.0-40.0); TRIGLYCERIDES LEVEL 128 MG/DL (<150); TROPONIN I 0.04 NG/ML (< 0.10)
[2020-08-09 05:10] LABS: HEMOGLOBIN A1c 6.4 %
[2020-08-09] MEDS: LEVALBUTEROL 1.25 MG/0.5 ML CONCENTRATE NEB INH SCH ×4 (07:14→19:18)
--- NOTE | 2020-08-09 08:15 | ECGEPIP ---
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
[2020-08-09] MEDS: ASPIRIN 81MG ENTERIC TABLET PO SCH (08:32)
[2020-08-09] MEDS: NICOTINE 14 MG/24 HR TRANSDERMAL TD SCH (08:32)
[2020-08-09] MEDS: VENLAFAXINE 37.5 MG TAB PO SCH (08:32)
[2020-08-09] MEDS: FOLIC ACID 1 MG TAB PO SCH (08:33)
[2020-08-09] MEDS: MULTIVITAMINS/MINERALS THERAP 1 TAB PO SCH (08:33)
[2020-08-09] MEDS: THIAMINE 100 MG TAB PO SCH (08:33)
[2020-08-09 08:50] LABS: HEPATITIS B SURFACE ANTIGEN NEGATIVE (NEGATIVE)
[2020-08-09 09:08] LABS: ALBUMIN 3.29 GM/DL (3.29-5.55); ALBUMIN % 57.8 % (55.8-66.1); ALPHA-1-GLOBULIN % 6.6 % (2.9-4.9); ALPHA-1-GLOBULINS 0.38 GM/DL (0.17-0.41); ALPHA-2-GLOBULINS 0.78 GM/DL (0.42-0.99); ALPHA-2-GLOBULINS % 13.6 % (7.1-11.8); BETA-1-GLOBULINS 0.38 GM/DL (0.28-0.60); BETA-1-GLOBULINS % 6.7 % (4.7-7.2); BETA-2-GLOBULINS 0.27 GM/DL (0.19-0.55); BETA-2-GLOBULINS % 4.7 % (3.2-6.5); GAMMA GLOBULIN % 10.6 % (11.1-18.8)
--- NOTE | 2020-08-09 09:14 | IPNPDOC ---
Text Note Date of Service The patient was seen on 08/09/20. NOTE Subjective: Patient seen and examined at bedside. No acute overnight events reported. Patient has no new medical complaints this morning. Objective: VITAL SIGNS: See below GENERAL APPEARANCE: NAD HEENT: NC/AT, EOMI CARDIOVASCULAR: +S1S2, RRR LUNGS: CTA B/L ABDOMEN: soft, NT, +BS EXTREMITIES: no edema NEUROLOGICAL: no gross focal deficits Psych: Alert, awake, oriented to person, place SKIN: Bilateral tattoos upper extremities , multiple excoriations in bilateral lower extremities. No signs of cellulitis ASSESSMENT/PLAN: 69-year-old male with history of alcohol abuse, quit drinking in 1993 without documented history of liver cirrhosis, 07-asjs-xlqs history of tobacco smoking, without documented history of COPD, right thalamic lacunar strokes, ascending thoracic aortic aneurysm at 3.8 cm, followed by vascular surgery, Dr. Martin, medical noncompliance, leaving AGAINST MEDICAL ADVICE and missing primary care physician appointments, chronic anasarca with no prior evaluation, was sent to the emergency room from his primary care doctor's appointment today due to uncontrolled blood pressure 225/126 and increasing abdominal ascites according to the sister. Patient has been disoriented for a long time and has not seen a physician for 2 months. He was seen in the ER in June 2020, but left AGAINST MEDICAL ADVICE. Patient could not provide review of system. He did not complain of any shortness of breath, headaches or changes in vision, chest pain, pressure at the bedside. In the emergency room, patient remained confused and could not provide any history, but oriented to where he was and is name., Glucose was 91. CT of the head had no acute intracranial pathology. Ammonia level was normal, less than 10. Urine toxicology screen was negative. Sodium was normal at 133. He was afebrile, and CT chest, abdomen and pelvis has no signs of infection. CT chest showed small bilateral pleural effusions. CT abdomen pelvis shows anasarca and 3.8 cm ascending thoracic aneurysm. Hospitalist was asked to admit the patient for hypertensive urgency with known history of 3.8 cm ascending thoracic aortic aneurysm, acute on chronic encephalopathy, anasarca with bilateral pleural effusions and ascites, with possible decompensated liver disease and acute diastolic heart failure with BNP of 4496. #Hypertensive urgency - resolved -Due to history of thoracic and abdominal aortic aneurysms, patient has been given atenolol 25 mg twice a day to go blood pressure 120-1 30 mmhg. Lasix for diuresis #Anasarca - On strict I's and O's, daily weights and 2 L fluid restrictions. Lasix 40 mg IV every 6 hourly 3 doses and reassess clinically in the morning. - To further evaluate patient's anasarca. Check for proteinuria with 24-hour protein, SPEP, UPEP, rule out lupus with anti-Pollard, neae-rqszxl-nmveluzl DNA A name. Check complement levels, cryoglobulins, hepatitis profile. #Acute on chronic diastolic congestive heart failure exacerbation with bilateral pleural effusions and BNP of 4496 -Telemetry. IV Lasix every 6 hourly with holding parameters. Strict I's and O's, daily weights, 2 L fluid restriction. -Ejection fraction 60% with preserved systolic function without significant valvular disease. #AMS - possible metabolic encephalopathy #aortic aneurysm - 3.8 cm ascending thoracic aortic aneurysm/ infrarenal abdominal aortic aneurysm measures 4.7 cm maximum AP dimension with a craniocaudad extent of 6.2 cm -On atenolol 25 mg twice a day for better blood pressure control. Outpatient follow-up with vascular surgery - stable as per radiology report - Patient has been advised to stop smoking, but refuses #History of right thalamic strokes #Active tobacco abuse with more than 46-jkll-hizt history of smoking -Refused nicotine patch, tobacco cessation counseling has been provided # Protein calorie malnutrition #History of alcohol abuse -Quit in 1993. #Anxiety disorder -On chronic clonazepam. Sees psychiatrist, Dr. 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 -No current complaints. Dispo: pending clinical improvement; sister is requesting social work consult to obtain a legal guardian, she is not interested in being his HCP VS,Fishbone, I+O VS, Fishbone, I+O Laboratory Tests 08/08/20 16:16 Vital Signs Date Time Temp Pulse Resp B/P (MAP) Pulse Ox O2 Delivery O2 Flow Rate FiO2 08/09/20 08:33 68 138/89 08/09/20 08:00 98.7 18 98 Nasal Cannula 2.0 I&O- Last 24 Hours up to 6 AM 08/09/20 06:00 Intake Total 875 ml Output Total 3875 ml Balance -3000 ml PABLO BROWN MD Aug 09, 2020 09:14
[2020-08-09 09:17] LABS: HEPATITIS C VIRUS ABY INDEX < 0.0 INDEX (<0.8)
[2020-08-09 09:18] LABS: HEPATITIS B CORE ANTIBODY IGM NEGATIVE (NEGATIVE)
[2020-08-09 09:19] LABS: HEPATITIS A ANTIBODY IGM NEGATIVE (NEGATIVE)
[2020-08-09] MEDS ORDERED: SLF 3 ML SYR IV PRN (09:25)
[2020-08-09 09:32] LABS: ALBUMIN 3.1 GM/DL (3.2-5.2); ALT/SGPT 20 U/L (12-78); BILIRUBIN,DIRECT 0.7 MG/DL (0.0-0.2); BILIRUBIN,TOTAL 1.2 MG/DL (0.2-1.0); BLOOD UREA NITROGEN 12 MG/DL (7-18); CALCIUM LEVEL 8.4 MG/DL (8.8-10.2); CARBON DIOXIDE LEVEL 35 MEQ/L (21-32); CHLORIDE LEVEL 91 MEQ/L (98-107); CREATININE FOR GFR 0.78 MG/DL (0.70-1.30); GLOMERULAR FILTRATION RATE > 60.0 (>49); GLUCOSE, FASTING 130 MG/DL (70-100); MAGNESIUM LEVEL 1.5 MG/DL (1.8-2.4); NT-PRO BNP 6511 PG/ML (<125); POTASSIUM SERUM 3.6 MEQ/L (3.5-5.1); SODIUM LEVEL 138 MEQ/L (136-145); TOTAL PROTEIN 5.7 GM/DL (6.4-8.2)
[2020-08-09 09:36] LABS: BASO % 0.2 % (0.0-1.0); HEMATOCRIT 51.8 % (42.0-52.0); HEMOGLOBIN 16.6 g/dl (13.5-17.5); LYMPH # 0.5 10^3/uL (1.5-5.0); LYMPH % 11.4 % (24.0-44.0); MEAN CORPUSCULAR HEMOGLOBIN 28.5 pg (27.0-33.0); MONO # 0.2 10^3/uL (0.0-0.8); MONO % 4.7 % (2.0-8.0); NEUTROPHILS # 3.4 10^3/uL (1.5-8.5); PLATELET COUNT, AUTOMATED 252 10^3/uL (150-450); RED BLOOD COUNT 5.82 10^6/uL (4.30-6.10); WHITE BLOOD COUNT 4.1 10^3/uL (4.0-10.0)
[2020-08-09] MEDS ORDERED: MAG SULF 1GM/100ML (MAG RUN) 1 GM in IV 1 EA IV ONE (10:30)
[2020-08-09] MEDS ORDERED: LIDOCAINE 1% MDV 20ML VIAL As Ordered ONE (13:19)
[2020-08-09] MEDS ORDERED: SODIUM BICARBONATE 8.4% INJ 50MEQ 50 ML VIAL As Ordered ONE (13:19)
[2020-08-09] MEDS: SLF 3 ML SYR IV SCH ×2 (14:19→22:42)
--- NOTE | 2020-08-09 15:02 | REP ---
INDICATION: eval dvt COMPARISON: None. TECHNIQUE: Cedeño scale and color Doppler evaluation of the bilateral upper extremities using linear high frequency transducer. FINDINGS: Ultrasound examination of the bilateral upper extremity venous structures including jugular, subclavian, axillary, brachial, basilic, and cephalic veins demonstrate normal flow characteristics without evidence for deep venous thrombosis. IMPRESSION: No evidence for deep venous thrombosis involving the bilateral upper extremities. <Electronically signed by Ananth Wray > 08/09/20 0206
[2020-08-09 15:42] LABS: APPEARANCE, BODY FLUID CLEAR (CLEAR); PERITONEAL FL COLOR PALE YELLOW (COLORLESS); SOURCE, BODY FLUID PERITONEAL
[2020-08-09 16:14] LABS: SOURCE, BODY FLUID ALBUMIN PERITONEAL; SOURCE, BODY FLUID GLUCOSE PERITONEAL; SOURCE, BODY FLUID TOT PROTEIN PERITONEAL; TOTAL PROTEIN, BODY FLUID 2.7 G/DL (NOT ESTABLISHED)
--- NOTE | 2020-08-09 17:01 | REP ---
INDICATION: diagnostic - peritoneal fluid analysis The patient has a history of ascites COMPARISON: None. TECHNIQUE: The procedure was performed by YARON Cool, under the direct supervision of Dr. Cedeño The risks and benefits of the procedure were explained to the patient and an informed consent was obtained both verbally and written. Directly prior to the start of the procedure a formal time-out was completed in the procedure room. The largest pocket of fluid was localized in the right flank using ultrasound guidance. The skin was prepped and draped in a sterile fashion. Eleven ML of buffered lidocaine was used as a local anesthetic. An 8-Mongolian multi side-hole skater catheter was inserted using trocar technique under ultrasound guidance. FINDINGS: 200 mL of yellow ascites was removed and sent to the laboratory for further analysis. The patient tolerated the procedure well and there were no immediate complications. After the appropriate amount of monitored convalescence, the patient was discharged from the department. IMPRESSION: Ultrasound-guided paracentesis with removal of 200 mL of ascites. <Electronically signed by Addie Almaguer > 08/09/20 1538 <Electronically signed by Vern Cedeño > 08/09/20 [id number]
[2020-08-09 18:55] LABS: BLOOD UREA NITROGEN 19 MG/DL (7-18); CREATININE FOR GFR 1.12 MG/DL (0.70-1.30); GLOMERULAR FILTRATION RATE > 60.0 (>49); GLUCOSE, FASTING 257 MG/DL (70-100)
[2020-08-09 18:56] LABS: CALCIUM LEVEL 8.7 MG/DL (8.8-10.2); CARBON DIOXIDE LEVEL 44 MEQ/L (21-32); CHLORIDE LEVEL 89 MEQ/L (98-107); CK-MB VALUE MASS 3.6 NG/ML (<3.6); CPK CREATINE PHOSPHOKINASE 89 U/L (39-308); MAGNESIUM LEVEL 1.8 MG/DL (1.8-2.4); MB/CK RELATIVE INDEX 4.04 (< OR =4); POTASSIUM SERUM 3.6 MEQ/L (3.5-5.1); SODIUM LEVEL 136 MEQ/L (136-145); TROPONIN I 0.04 NG/ML (< 0.10)
[2020-08-10] VITALS (7 sets, daily range): BP systolic 101–153; BP diastolic 62–92
[2020-08-10 01:20] LABS: TOTAL PROTEIN 24 HOUR URINE 623.1 MG/24HR (50-150); URINE TOTAL PROTEIN 12.1 MG/DL (0-12)
[2020-08-10 04:15] LABS: HEMATOCRIT 49.6 % (42.0-52.0); HEMOGLOBIN 15.5 g/dl (13.5-17.5); MEAN CORPUSCULAR HEMOGLOBIN 28.9 pg (27.0-33.0); MEAN CORPUSCULAR HGB CONC 31.3 g/dl (32.0-36.5); MEAN CORPUSCULAR VOLUME 92.5 fl (80.0-96.0); PLATELET COUNT, AUTOMATED 235 10^3/uL (150-450); RED BLOOD COUNT 5.36 10^6/uL (4.30-6.10); WHITE BLOOD COUNT 8.6 10^3/uL (4.0-10.0)
[2020-08-10 05:05] LABS: BLOOD UREA NITROGEN 22 MG/DL (7-18); CALCIUM LEVEL 8.1 MG/DL (8.8-10.2); CARBON DIOXIDE LEVEL 49 MEQ/L (21-32); CHLORIDE LEVEL 91 MEQ/L (98-107); CREATININE FOR GFR 0.94 MG/DL (0.70-1.30); GLOMERULAR FILTRATION RATE > 60.0 (>49); GLUCOSE, FASTING 118 MG/DL (70-100); POTASSIUM SERUM 3.7 MEQ/L (3.5-5.1); SODIUM LEVEL 141 MEQ/L (136-145)
[2020-08-10] MEDS: SLF 3 ML SYR IV SCH ×3 (06:55→20:40)
[2020-08-10] MEDS: LEVALBUTEROL 1.25 MG/0.5 ML CONCENTRATE NEB INH SCH ×4 (07:07→20:38)
[2020-08-10] MEDS: MULTIVITAMINS/MINERALS THERAP 1 TAB PO SCH (08:04)
[2020-08-10] MEDS: ASPIRIN 81MG ENTERIC TABLET PO SCH (08:04)
[2020-08-10] MEDS: NICOTINE 14 MG/24 HR TRANSDERMAL TD SCH (08:04)
[2020-08-10] MEDS: FOLIC ACID 1 MG TAB PO SCH (08:04)
[2020-08-10] MEDS: THIAMINE 100 MG TAB PO SCH (08:04)
[2020-08-10] MEDS: VENLAFAXINE 37.5 MG TAB PO SCH (08:04)
[2020-08-10] MEDS: amLODIPine 5 MG TAB PO SCH ×2 (08:05→20:10)
[2020-08-10] MEDS: atenoloL 25 MG TAB PO SCH ×2 (08:05→20:13)
--- NOTE | 2020-08-10 10:11 | IPNPDOC ---
Text Note Date of Service The patient was seen on 08/10/20. NOTE Subjective: Patient seen and examined at bedside. No acute overnight events reported. Patient has no new medical complaints this morning. Objective: VITAL SIGNS: See below GENERAL APPEARANCE: NAD, sitting comfortably in bed eating breakfast HEENT: NC/AT, EOMI CARDIOVASCULAR: +S1S2, RRR LUNGS: CTA B/L ABDOMEN: soft, NT, +BS EXTREMITIES: no edema NEUROLOGICAL: no gross focal deficits Psych: Alert, awake, oriented to person, place SKIN: Bilateral tattoos upper extremities , multiple excoriations in bilateral lower extremities. No signs of cellulitis ASSESSMENT/PLAN: 69-year-old male with history of alcohol abuse, quit drinking in 1993 without documented history of liver cirrhosis, 13-mmlm-ywbl history of tobacco smoking, without documented history of COPD, right thalamic lacunar strokes, ascending thoracic aortic aneurysm at 3.8 cm, followed by vascular surgery, Dr. Martin, medical noncompliance, leaving AGAINST MEDICAL ADVICE and missing primary care physician appointments, chronic anasarca with no prior evaluation, was sent to the emergency room from his primary care doctor's appointment today due to uncontrolled blood pressure 225/126 and increasing abdominal ascites according to the sister. Patient has been disoriented for a long time and has not seen a physician for 2 months. He was seen in the ER in June 2020, but left AGAINST MEDICAL ADVICE. Patient could not provide review of system. He did not complain of any shortness of breath, headaches or changes in vision, chest pain, pressure at the bedside. In the emergency room, patient remained confused and could not provide any history, but oriented to where he was and is name., Glucose was 91. CT of the head had no acute intracranial pathology. Ammonia level was normal, less than 10. Urine toxicology screen was negative. Sodium was normal at 133. He was afebrile, and CT chest, abdomen and pelvis has no signs of infection. CT chest showed small bilateral pleural effusions. CT abdomen pelvis shows anasarca and 3.8 cm ascending thoracic aneurysm. Hospitalist was asked to admit the patient for hypertensive urgency with known history of 3.8 cm ascending thoracic aortic aneurysm, acute on chronic encephalopathy, anasarca with bilateral pleural effusions and ascites, with possible decompensated liver disease and acute diastolic heart failure with BNP of 4496. #Hypertensive urgency - resolved - norvasc, atenolol #Anasarca - On strict I's and O's, daily weights and 2 L fluid restrictions. Lasix 40 mg IV every 6 hourly 3 doses and reassess clinically in the morning. - To further evaluate patient's anasarca. Check for proteinuria with 24-hour protein, SPEP, UPEP, rule out lupus with anti-Pollard, ebzi-zlygwf-ovwewhsh DNA A name. Check complement levels, cryoglobulins, hepatitis profile. - s/p diagnostic paracentesis #Acute on chronic diastolic congestive heart failure exacerbation with bilateral pleural effusions and BNP of 4496 -Telemetry. - s/p IV lasix - strict I's and O's, daily weights, 2 L fluid restriction. -Ejection fraction 60% with preserved systolic function without significant valvular disease. - wean O2 #AMS - possible metabolic encephalopathy - much improved #aortic aneurysm - 3.8 cm ascending thoracic aortic aneurysm/ infrarenal abdominal aortic aneurysm measures 4.7 cm maximum AP dimension with a craniocaudad extent of 6.2 cm -On atenolol 25 mg twice a day for better blood pressure control. Outpatient follow-up with vascular surgery - stable as per radiology reports - Patient has been advised to stop smoking, but refuses #History of right thalamic strokes #Active tobacco abuse with more than 39-enpo-ljle history of smoking -Refused nicotine patch, tobacco cessation counseling has been provided # Protein calorie malnutrition #History of alcohol abuse - Quit in 1993 as per documentation and patient #Anxiety disorder -On chronic clonazepam. Sees psychiatrist, Dr. 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 -No current complaints. #medical non-compliance Dispo: pending clinical improvement; transfer to med/surg with tele; extensive discussion with sister leobardo - expresses concern over his home safety and ability to provide self-care VS,Fishbone, I+O VS, Fishbone, I+O Laboratory Tests 08/09/20 17:42 08/10/20 03:43 Vital Signs Date Time Temp Pulse Resp B/P (MAP) Pulse Ox O2 Delivery O2 Flow Rate FiO2 08/10/20 08:05 75 153/92 08/10/20 04:00 97.2 18 96 Nasal Cannula 2.0 I&O- Last 24 Hours up to 6 AM 08/10/20 06:00 Intake Total 1180 ml Output Total 1700 ml Balance -520 ml PABLO BROWN MD Aug 10, 2020 10:11
[2020-08-11 05:10] VITALS: BP 162/96
[2020-08-11] MEDS: SLF 3 ML SYR IV SCH ×3 (05:23→20:43)
[2020-08-11 05:30] LABS: HEMATOCRIT 49.3 % (42.0-52.0); HEMOGLOBIN 14.8 g/dl (13.5-17.5); MEAN CORPUSCULAR HEMOGLOBIN 28.4 pg (27.0-33.0); MEAN CORPUSCULAR VOLUME 94.4 fl (80.0-96.0); PLATELET COUNT, AUTOMATED 192 10^3/uL (150-450); RED BLOOD COUNT 5.22 10^6/uL (4.30-6.10); WHITE BLOOD COUNT 9.1 10^3/uL (4.0-10.0)
[2020-08-11 05:55] LABS: BLOOD UREA NITROGEN 23 MG/DL (7-18); CALCIUM LEVEL 8.2 MG/DL (8.8-10.2); CARBON DIOXIDE LEVEL 44 MEQ/L (21-32); CHLORIDE LEVEL 95 MEQ/L (98-107); CREATININE FOR GFR 0.72 MG/DL (0.70-1.30); GLOMERULAR FILTRATION RATE > 60.0 (>49); GLUCOSE, FASTING 109 MG/DL (70-100); NT-PRO BNP 6015 PG/ML (<125); POTASSIUM SERUM 3.6 MEQ/L (3.5-5.1); SODIUM LEVEL 140 MEQ/L (136-145)
[2020-08-11 06:00] VITALS: BP 162/96
[2020-08-11] MEDS: LEVALBUTEROL 1.25 MG/0.5 ML CONCENTRATE NEB INH SCH ×4 (07:18→20:12)
[2020-08-11] MEDS: amLODIPine 5 MG TAB PO SCH ×2 (09:00→20:42)
[2020-08-11] MEDS: ASPIRIN 81MG ENTERIC TABLET PO SCH (09:41)
[2020-08-11] MEDS: THIAMINE 100 MG TAB PO SCH (09:41)
[2020-08-11] MEDS: MULTIVITAMINS/MINERALS THERAP 1 TAB PO SCH (09:41)
[2020-08-11] MEDS: VENLAFAXINE 37.5 MG TAB PO SCH (09:41)
[2020-08-11] MEDS: FOLIC ACID 1 MG TAB PO SCH (09:41)
[2020-08-11] MEDS: atenoloL 25 MG TAB PO SCH ×2 (09:42→20:43)
[2020-08-11] MEDS: NICOTINE 14 MG/24 HR TRANSDERMAL TD SCH (09:42)
--- NOTE | 2020-08-11 11:34 | IPNPDOC ---
Text Note Date of Service The patient was seen on 08/11/20. NOTE Subjective: Patient seen and examined at bedside. No acute overnight events reported. Patient has no new medical complaints this morning. Objective: VITAL SIGNS: See below GENERAL APPEARANCE: NAD, sitting comfortably in bed HEENT: NC/AT, EOMI CARDIOVASCULAR: +S1S2, RRR LUNGS: CTA B/L ABDOMEN: soft, NT, +BS EXTREMITIES: no edema NEUROLOGICAL: no gross focal deficits Psych: Alert, awake, oriented to person, place SKIN: Bilateral tattoos upper extremities , multiple excoriations in bilateral lower extremities. No signs of cellulitis ASSESSMENT/PLAN: 69-year-old male with history of alcohol abuse, quit drinking in 1993 without documented history of liver cirrhosis, 11-wglu-xiej history of tobacco smoking, without documented history of COPD, right thalamic lacunar strokes, ascending thoracic aortic aneurysm at 3.8 cm, followed by vascular surgery, Dr. Martin, medical noncompliance, leaving AGAINST MEDICAL ADVICE and missing primary care physician appointments, chronic anasarca with no prior evaluation, was sent to the emergency room from his primary care doctor's appointment today due to uncontrolled blood pressure 225/126 and increasing abdominal ascites according to the sister. Patient has been disoriented for a long time and has not seen a physician for 2 months. He was seen in the ER in June 2020, but left AGAINST MEDICAL ADVICE. Patient could not provide review of system. He did not complain of any shortness of breath, headaches or changes in vision, chest pain, pressure at the bedside. In the emergency room, patient remained confused and could not provide any history, but oriented to where he was and is name., Glucose was 91. CT of th e head had no acute intracranial pathology. Ammonia level was normal, less than 10. Urine toxicology screen was negative. Sodium was normal at 133. He was afebrile, and CT chest, abdomen and pelvis has no signs of infection. CT chest showed small bilateral pleural effusions. CT abdomen pelvis shows anasarca and 3.8 cm ascending thoracic aneurysm. Hospitalist was asked to admit the patient for hypertensive urgency with known history of 3.8 cm ascending thoracic aortic aneurysm, acute on chronic encephalopathy, anasarca with bilateral pleural effusions and ascites, with possible decompensated liver disease and acute diastolic heart failure with BNP of 4496. #Hypertensive urgency - resolved - norvasc, atenolol #Anasarca - immunotyping - serum and urine pending - s/p diagnostic paracentesis #Acute on chronic diastolic congestive heart failure exacerbation with bilateral pleural effusions and BNP of 4496 -Telemetry. - strict I's and O's, daily weights, 2 L fluid restriction. -Ejection fraction 60% with preserved systolic function without significant valvular disease. - still with dyspnea on exertion - cxr pending - elevated BNP - continue IV lasix #PNA - starting Levaquin - sputum cultures/gram stain #AMS - possible metabolic encephalopathy - resolved #aortic aneurysm - 3.8 cm ascending thoracic aortic aneurysm/ infrarenal abdominal aortic aneurysm measures 4.7 cm maximum AP dimension with a craniocaudad extent of 6.2 cm -On atenolol 25 mg twice a day for better blood pressure control. Outpatient follow-up with vascular surgery - stable as per radiology reports - Patient has been advised to stop smoking, but refuses #History of right thalamic strokes #Active tobacco abuse with more than 30-csgo-gtsi history of smoking -Refused nicotine patch, tobacco cessation counseling has been provided # Protein calorie malnutrition #History of alcohol abuse - Quit in 1993 as per documentation and patient #Anxiety disorder -On chronic clonazepam. Sees psychiatrist, Dr. 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 -No current complaints. #medical non-compliance Dispo: pending clinical improvement; extensive discussion with sister leobardo - expresses concern over his home safety and ability to provide self-care VS,Fishbone, I+O VS, Fishbone, I+O Laboratory Tests 08/11/20 05:06 Vital Signs Date Time Temp Pulse Resp B/P (MAP) Pulse Ox O2 Delivery O2 Flow Rate FiO2 08/11/20 06:00 97.0 79 18 162/96 (118) 93 Nasal Cannula 1.0 I&O- Last 24 Hours up to 6 AM 08/11/20 06:00 Intake Total 1495 ml Output Total 1300 ml Balance 195 ml PABLO BROWN MD Aug 11, 2020 07:44
--- NOTE | 2020-08-11 12:31 | REP ---
INDICATION: sob COMPARISON: 08/08/2020 TECHNIQUE: PA and lateral. FINDINGS: Left lower lobe/retrocardiac consolidation and effusion again noted and possibly increased from prior examination. Remainder of the bilateral lung lopez demonstrate chronic appearing changes. No pneumothorax. Cardiac silhouette is normal. Skeletal structures intact. IMPRESSION: Moderate left lower lobe/retrocardiac consolidation and effusion which appear slightly increased from prior examination. <Electronically signed by Ananth Wray > 08/11/20 [id number]
[2020-08-11 14:00] VITALS: BP 139/95
[2020-08-11] MEDS: FUROSEMIDE 40MG/4ML VIAL (J1940) IV SCH (17:00)
[2020-08-11] MEDS: LevoFLOXacin IV 750 MG in IV 1 EA IV SCH (17:01)
[2020-08-11 22:00] VITALS: BP 148/94
[2020-08-12] VITALS (8 sets, daily range): BP systolic 82–150; BP diastolic 48–104
[2020-08-12] MEDS ORDERED: POTASSIUM CHLORIDE 10 MEQ SR TABLET PO ONE (01:25)
[2020-08-12] MEDS ORDERED: MAG SULF 1GM/100ML (MAG RUN) 1 GM in IV 1 EA IV ONE (01:25)
[2020-08-12] MEDS ORDERED: CALCIUM GLUCONATE 1,000 MG in D5W MINI-BAG PLUS 100 ML IV ONE (02:00)
[2020-08-12 02:07] LABS: MAGNESIUM LEVEL 1.6 MG/DL (1.8-2.4); POTASSIUM SERUM 3.8 MEQ/L (3.5-5.1)
[2020-08-12] MEDS: SLF 3 ML SYR IV SCH ×3 (04:51→21:13)
[2020-08-12] MEDS ORDERED: cloNIDine 0.1MG TABLET PO ONE (05:10)
[2020-08-12 06:09] LABS: HEMATOCRIT 51.9 % (42.0-52.0); HEMOGLOBIN 15.9 g/dl (13.5-17.5); MEAN CORPUSCULAR HEMOGLOBIN 28.8 pg (27.0-33.0); MEAN CORPUSCULAR HGB CONC 30.6 g/dl (32.0-36.5); PLATELET COUNT, AUTOMATED 198 10^3/uL (150-450); RED BLOOD COUNT 5.52 10^6/uL (4.30-6.10); WHITE BLOOD COUNT 9.4 10^3/uL (4.0-10.0)
[2020-08-12 06:30] LABS: BLOOD UREA NITROGEN 17 MG/DL (7-18); CALCIUM LEVEL 8.4 MG/DL (8.8-10.2); CARBON DIOXIDE LEVEL 40 MEQ/L (21-32); CHLORIDE LEVEL 93 MEQ/L (98-107); CREATININE FOR GFR 0.67 MG/DL (0.70-1.30); GLOMERULAR FILTRATION RATE > 60.0 (>49); GLUCOSE, FASTING 129 MG/DL (70-100); POTASSIUM SERUM 3.7 MEQ/L (3.5-5.1); SODIUM LEVEL 136 MEQ/L (136-145)
[2020-08-12] MEDS: LEVALBUTEROL 1.25 MG/0.5 ML CONCENTRATE NEB INH SCH ×4 (07:03→19:28)
[2020-08-12] MEDS: FUROSEMIDE 40MG/4ML VIAL (J1940) IV SCH ×3 (08:57→17:17)
[2020-08-12] MEDS: NICOTINE 14 MG/24 HR TRANSDERMAL TD SCH (08:57)
[2020-08-12] MEDS: ASPIRIN 81MG ENTERIC TABLET PO SCH (08:58)
[2020-08-12] MEDS: MULTIVITAMINS/MINERALS THERAP 1 TAB PO SCH (08:58)
[2020-08-12] MEDS: THIAMINE 100 MG TAB PO SCH (08:58)
[2020-08-12] MEDS: FOLIC ACID 1 MG TAB PO SCH (08:58)
[2020-08-12] MEDS: VENLAFAXINE 37.5 MG TAB PO SCH (08:58)
[2020-08-12] MEDS: atenoloL 25 MG TAB PO SCH ×2 (09:00→21:00)
[2020-08-12] MEDS: amLODIPine 5 MG TAB PO SCH ×2 (09:00→21:00)
[2020-08-12 14:07] LABS: ANTI DS-DNA AB Negative (Negative); ANTINUCLEAR ANTIBODIES DIRECT Negative (Negative); COMPLEMENT TOTAL (CH50) 59 U/mL (>41); FREE KAPPA LIGHT CHAINS SERUM 15.9 mg/L (3.3-19.4); KAPPA/LAMBDA RATIO SERUM 1.45 (0.26-1.65); RNP ANTIBODIES <0.2 AI (0.0-0.9); SMITH ANTIBODIES <0.2 AI (0.0-0.9)
--- NOTE | 2020-08-12 14:08 | IPNPDOC ---
Subjective Date Seen The patient was seen on 08/12/20. Subjective Chief Complaint/HPI Subjective: Pt is seen at bedside this morning. No acute distress. No acute events overnight reported by nursing. Of note, patient was started on clonidine by the admitting physician. This morning, patient's blood pressure tending to 82/48 with a MAP of 59 , all blood pressure medications and help currently. Patient has been DC'd off of clonidine. We'll continue to monitor blood pressure closely and restart his other blood pressure medications once he is normotensive/back to his baseline. Pt denies any CP, abdominal pain, n/v/d, or syncope. Objective: VITAL SIGNS: Please See below GENERAL APPEARANCE: NAD, sitting comfortably in bed HEENT: NC/AT, EOMI CARDIOVASCULAR: +S1S2, RRR LUNGS: CTA B/L ABDOMEN: soft, NT, +BS EXTREMITIES: no edema NEUROLOGICAL: no gross focal deficits Psych: Alert, awake, oriented to person, place SKIN: Bilateral tattoos upper extremities, multiple excoriations in bilateral lower extremities. No signs of cellulitis ASSESSMENT/PLAN: This is a 69-year-old male with history of alcohol abuse, quit drinking in 1993 without documented history of liver cirrhosis, 24-lzgp-utlx history of tobacco smoking, without documented history of COPD, right thalamic lacunar strokes, ascending thoracic aortic aneurysm at 3.8 cm, followed by vascular surgery, Dr. Martin, medical noncompliance, leaving AGAINST MEDICAL ADVICE and missing primary care physician appointments, chronic anasarca with no prior evaluation, was sent to the emergency room from his primary care doctor's appointment today due to uncontrolled blood pressure 225/126 and increasing abdominal ascites according to the sister. Patient has been disoriented for a long time and has not seen a physician for 2 months. He was seen in the ER in June 2020, but left AGAINST MEDICAL ADVICE. In the ER, patient remained confused and could not provide any history, but oriented to where he was and is name. Ammonia level was normal, less than 10. Urine toxicology screen was negative. Sodium was normal at 133. He was afebrile, and CT chest, abdomen and pelvis has no signs of infection. CT chest showed small bilateral pleural effusions. CT abdomen pelvis shows anasarca and 3.8 cm ascending thoracic aneurysm. Hospitalist was asked to admit the patient for hypertensive urgency with known history of 3.8 cm ascending thoracic aortic aneurysm, acute on chronic encephalopathy, anasarca with bilateral pleural effusions and ascites, with possible decompensated liver disease and acute diastolic heart failure with BNP of 4496. #Hypertensive urgency - resolved Bp today is 150/104 - BP 82/48, map 59- DC clonidine. All other blood pressure medications held - We'll continue to monitor blood pressure closely and add back his blood pressure medications when the patient is at his baseline blood pressure - Continue with Norvasc, atenolol #Anasarca - hx of alcohol use and cirrhosis. S/p paracentesis and fluid analysis- neg organism in ascites fluid - blood cx x2 negative - Serum albumin 3.1; ascites fluid albumin 1.6. , Calculated serum ascites a lbumin gradient is 1.5 - Mildly elevated PT; INR within normal - Slight elevation of bilirubin; T/L2 within normal limits - Child hsu score 2 #Acute on chronic diastolic congestive heart failure exacerbation with bilateral pleural effusions - c/w telemetry - still with dyspnea on exertion - C/w lasix - C/W strict I's & O's, daily weights #AMS likely possible due to hepatic encephalopathy - Improved AAOx3 today #aortic aneurysm - 3.8 cm ascending thoracic aortic aneurysm/ infrarenal abdominal aortic aneurysm measures 4.7 cm maximum AP dimension with a craniocaudad extent of 6.2 cm -On atenolol 25 mg twice a day for better blood pressure control. Outpatient follow-up with vascular surgery - stable as per radiology reports - Patient has been advised to stop smoking, but refuses #Active tobacco abuse -50+ pack-year history of smoking -Refused nicotine patch, tobacco cessation counseling has been provided #History of alcohol abuse - Quit in 1993 as per documentation and patient #Anxiety disorder -On chronic clonazepam. Sees psychiatrist, Dr. cerda, as outpatient, but noncompliant with his appointments DVT prophylaxis: Lovenox GI prophylaxis: None indicated Disposition: pending clinical improvement; PT, OT eval and treat. Assessment /Plan Plan/VTE VTE Prophylaxis Ordered?: Yes VS, I&O, 24H, Fishbone Vital Signs/I&O Vital Signs Date Time Temp Pulse Resp B/P (MAP) Pulse Ox O2 Delivery O2 Flow Rate FiO2 08/12/20 09:10 82/48 (59) 08/12/20 09:00 62 08/12/20 05:00 98.0 18 96 Nasal Cannula 1.0 I&O- Last 24 Hours up to 6 AM 08/12/20 05:59 Intake Total 1200 ml Output Total 1025 ml Balance 175 ml Laboratory Data 24H LABS Laboratory Tests 2 08/11/20 16:58: Bedside Glucose (Misc Panel) 144H 08/12/20 01:38: Magnesium Level 1.6L 08/12/20 01:41: Whole Blood Ionized Calcium 4.4L 08/12/20 05:10: Magnesium Level 2.0, Nucleated Red Blood Cells % (auto) 0.0, Anion Gap 3L, Glomerular Filtration Rate > 60.0, Calcium Level 8.4L CBC/BMP Laboratory Tests 08/12/20 01:38 08/12/20 05:10 Microbiology Microbiology 08/10/20 Respiratory Virus Panel (PCR) ([facility]) - Final, Complete 08/09/20 Gram Stain - Final, Complete 08/09/20 Body Fluid Culture - Final, Complete 08/09/20 Anaerobic Culture - Final, Complete 08/08/20 Blood Culture - Preliminary, Resulted No Growth after 72 hours. All specime... 08/08/20 Blood Culture - Preliminary, Resulted No Growth after 72 hours. All specime... GME ATTESTATION GME ATTESTATION My faculty preceptor for this patient encounter was physically present during the encounter and was fully available. All aspects of the patient interview, examination, medical decision making process, and medical care plan development were reviewed and approved by the faculty preceptor. The faculty preceptor is aware and concurs with the plan as stated in the body of this note and will attest to such by his/her cosignature. ATTENDING NOTE Attending Note: Patient seen and examined independently. Agree with resident's note and plan of care. Sudha Bautista DO Aug 12, 2020 11:37 PABLO BROWN MD Aug 12, 2020 18:38
[2020-08-12] MEDS: ENOXAPARIN 40MG/0.4ML SYRINGE (J1650 PER 10MG) SC SCH (17:17)
[2020-08-12] MEDS: LevoFLOXacin IV 750 MG in IV 1 EA IV SCH (17:18)
[2020-08-13 05:52] LABS: HEMATOCRIT 47.3 % (42.0-52.0); HEMOGLOBIN 14.6 g/dl (13.5-17.5); MEAN CORPUSCULAR HEMOGLOBIN 28.6 pg (27.0-33.0); MEAN CORPUSCULAR HGB CONC 30.9 g/dl (32.0-36.5); MEAN CORPUSCULAR VOLUME 92.6 fl (80.0-96.0); PLATELET COUNT, AUTOMATED 189 10^3/uL (150-450); RED BLOOD COUNT 5.11 10^6/uL (4.30-6.10); WHITE BLOOD COUNT 7.5 10^3/uL (4.0-10.0)
[2020-08-13 06:00] VITALS: BP 149/88
[2020-08-13 06:15] LABS: BLOOD UREA NITROGEN 23 MG/DL (7-18); CALCIUM LEVEL 8.3 MG/DL (8.8-10.2); CARBON DIOXIDE LEVEL 37 MEQ/L (21-32); CHLORIDE LEVEL 97 MEQ/L (98-107); CREATININE FOR GFR 0.65 MG/DL (0.70-1.30); GLOMERULAR FILTRATION RATE > 60.0 (>49); GLUCOSE, FASTING 104 MG/DL (70-100); POTASSIUM SERUM 3.7 MEQ/L (3.5-5.1); SODIUM LEVEL 138 MEQ/L (136-145)
[2020-08-13] MEDS: SLF 3 ML SYR IV SCH ×3 (06:27→20:10)
[2020-08-13] MEDS: LEVALBUTEROL 1.25 MG/0.5 ML CONCENTRATE NEB INH SCH ×4 (07:25→19:30)
[2020-08-13 08:15] VITALS: BP 130/80
[2020-08-13] MEDS: atenoloL 25 MG TAB PO SCH ×2 (09:00→20:09)
[2020-08-13] MEDS: amLODIPine 5 MG TAB PO SCH ×2 (09:00→20:09)
[2020-08-13] MEDS ORDERED: FUROSEMIDE 80 MG TAB PO SCH (09:00)
[2020-08-13] MEDS: ASPIRIN 81MG ENTERIC TABLET PO SCH (09:30)
[2020-08-13] MEDS: FUROSEMIDE 40 MG TAB PO SCH ×2 (09:30→17:07)
[2020-08-13] MEDS: NICOTINE 14 MG/24 HR TRANSDERMAL TD SCH (09:30)
[2020-08-13] MEDS: FOLIC ACID 1 MG TAB PO SCH (09:30)
[2020-08-13] MEDS: VENLAFAXINE 37.5 MG TAB PO SCH (09:31)
[2020-08-13] MEDS: THIAMINE 100 MG TAB PO SCH (09:31)
[2020-08-13] MEDS: ENOXAPARIN 40MG/0.4ML SYRINGE (J1650 PER 10MG) SC SCH (09:31)
[2020-08-13] MEDS: MULTIVITAMINS/MINERALS THERAP 1 TAB PO SCH (09:31)
[2020-08-13] MEDS: LevoFLOXacin 750 MG TABLET PO SCH (09:34)
--- NOTE | 2020-08-13 10:38 | IPNPDOC ---
Subjective Date Seen The patient was seen on 08/13/20. Subjective Chief Complaint/HPI Subjective: Pt is seen at bedside this morning. No acute distress. Is tolerating PT, OT well. No acute events overnight reported by nursing., No hypotensive episodes overnight. Patient's blood pressure medication, amlodipine and atenolol have been resumed with hold parameters. Pt denies any CP, abdominal pain, n/v/d, or syncope. Objective: VITAL SIGNS: Please See below GENERAL APPEARANCE: NAD, sitting comfortably in bed HEENT: NC/AT, EOMI CARDIOVASCULAR: +S1S2, RRR LUNGS: CTA B/L ABDOMEN: soft, NT, +BS EXTREMITIES: no edema NEUROLOGICAL: no gross focal deficits Psych: Alert, awake, oriented to person, place SKIN: Bilateral tattoos upper extremities, multiple excoriations in bilateral lower extremities. No signs of cellulitis Imaging: Chest x-ray PA lateral 08/11/20: Moderate left lower lobe/retrocardiac consolidation and effusion, which appears slightly increased from prior examination on 08/08/20 ASSESSMENT/PLAN: This is a 69-year-old male with history of alcohol abuse, quit drinking in 1993 without documented history of liver cirrhosis, [id number] history of tobacco smoking, without documented history of COPD, right thalamic lacunar strokes, ascending thoracic aortic aneurysm at 3.8 cm, followed by vascular surgery, Dr. Martin, medical noncompliance, leaving AGAINST MEDICAL ADVICE and missing primary care physician appointments, chronic anasarca with no prior evaluation, was sent to the emergency room from his primary care doctor's appointment today due to uncontrolled blood pressure 225/126 and increasing abdominal ascites according to the sister. Patient has been disoriented for a long time and has not seen a physician for 2 months. He was seen in the ER in June 2020, but left AGAINST MEDICAL ADVICE. In the ER, patient remained confused and could not provide any history, but oriented to where he was and is name. Ammonia level was normal, less than 10. Urine toxicology screen was negative. Sodium was normal at 133. He was afebrile, and CT chest, abdomen and pelvis has no signs of infection. CT chest showed small bilateral pleural effusions. CT abdomen pelvis shows anasarca and 3.8 cm ascending thoracic aneurysm. Hospitalist was asked to admit the patient for hypertensive urgency with known history of 3.8 cm ascending thoracic aortic aneurysm, acute on chronic encephalopathy, anasarca with bilateral pleural effusions and ascites, with possible decompensated liver disease and acute diastolic heart failure with BNP of 4496. #Hypertensive urgency - resolved Bp today is 150/104 - BP 149/88, resumed amlodipine and atenolol - We'll continue to monitor blood pressure closely #Anasarca - hx of alcohol use and cirrhosis. s/p paracentesis (200 ml) and fluid analysis- neg organism in ascites fluid - blood cx x2 negative - Serum albumin 3.1; ascites fluid albumin 1.6. Calculated serum ascites albumin gradient is 1.5 - Mildly elevated PT; INR within normal - Slight elevation of bilirubin; T/L2 within normal limits - Child hsu score 2 #CAP - Chest x-ray on 08/11 still shows moderate left lower lobe/which cardiac consolidation and effusion, which appears slightly increased from 08/08/20. - transition Levaquin 750 mg IV every 24 hours to 750 mg by mouth every 24 - Taken off of 1 L nasal cannula saturating greater than 90 % #Acute on chronic diastolic congestive heart failure exacerbation with bilateral pleural effusions - c/w telemetry - still with dyspnea on exertion - C/w lasix - and 24 hour output of approximately -2.5 L - C/W strict I's & O's, daily weights #AMS likely possible due to hepatic encephalopathy - Improved AAOx3 today #Aortic aneurysm - 3.8 cm ascending thoracic aortic aneurysm/ infrarenal abdominal aortic aneurysm measures 4.7 cm maximum AP dimension with a craniocaudad extent of 6.2 cm -On atenolol 25 mg twice a day for better blood pressure control. Outpatient follow-up with vascular surgery - stable as per radiology reports - Patient has been advised to stop smoking, but refuses #Active tobacco abuse -50+ pack-year history of smoking -Refused nicotine patch, tobacco cessation counseling has been provided #History of alcohol abuse - Quit in 1993 as per documentation and patient #Anxiety disorder -On chronic clonazepam. Sees psychiatrist, Dr. cerda, as outpatient, but noncompliant with his appointments DVT prophylaxis: Lovenox GI prophylaxis: None indicated Disposition: - Patient's sister is her first concerns. His ability to perform self-care. He is pending placement. - Currently We'll transition IV medications to by mouth. - Will make ALC status today Assessment /Plan Plan/VTE VTE Prophylaxis Ordered?: Yes VS, I&O, 24H, Fishbone Vital Signs/I&O Vital Signs Date Time Temp Pulse Resp B/P (MAP) Pulse Ox O2 Delivery O2 Flow Rate FiO2 08/13/20 08:15 98.5 76 18 130/80 (97) 93 Nasal Cannula 1.0 I&O- Last 24 Hours up to 6 AM 08/13/20 06:00 Intake Total 1435 ml Output Total 975 ml Balance 460 ml Laboratory Data 24H LABS Laboratory Tests 2 08/13/20 05:13: Nucleated Red Blood Cells % (auto) 0.0, Anion Gap 4L, Glomerular Filtration Rate > 60.0, Calcium Level 8.3L CBC/BMP Laboratory Tests 08/13/20 05:13 Microbiology Microbiology 08/10/20 Respiratory Virus Panel (PCR) ([facility]) - Final, Complete 08/09/20 Gram Stain - Final, Complete 08/09/20 Body Fluid Culture - Final, Complete 08/09/20 Anaerobic Culture - Final, Complete 08/08/20 Blood Culture - Preliminary, Resulted No Growth after 72 hours. All specime... 08/08/20 Blood Culture - Preliminary, Resulted No Growth after 72 hours. All specime... GME ATTESTATION GME ATTESTATION My faculty preceptor for this patient encounter was physically present during the encounter and was fully available. All aspects of the patient interview, examination, medical decision making process, and medical care plan development were reviewed and approved by the faculty preceptor. The faculty preceptor is aware and concurs with the plan as stated in the body of this note and will attest to such by his/her cosignature. ATTENDING NOTE I, Santino Bradford, have independently examined this patient and performed my own physical exam, as well as reviewed the documentation and edited where necessary. I have discussed in detail with the resident / student the findings and plan of treatment as documented by the resident / student and edited their note. I agree with their findings and treatment plan and have edited their documentation. I will continue to follow the patient during this hospital stay. Sudha Bautista DO Aug 13, 2020 09:29 SANTINO BRADFORD MD Aug 13, 2020 11:06
[2020-08-13] MEDS: LACTULOSE 20 GM/30 ML SYRUP UD PO SCH ×2 (12:39→17:07)
[2020-08-13 13:48] VITALS: BP 130/78
--- NOTE | 2020-08-13 17:54 | REP ---
INDICATION: Hypoxia COMPARISON: 08/11/2020 TECHNIQUE: Portable AP view of the chest FINDINGS: The mediastinum and cardiac silhouette are stable and within normal limits for portable technique. Left lower lobe/retrocardiac consolidation consistent with acute pneumonia similar to prior examination. Small associated left pleural effusion cannot be excluded. IMPRESSION: Continued left lower lobe consolidation and small left pleural effusion. <Electronically signed by Ananth Wray > 08/13/20 [id number]
[2020-08-13 22:10] VITALS: O2SAT 98
[2020-08-13 22:23] VITALS: O2SAT 96
[2020-08-14] MEDS: LACTULOSE 20 GM/30 ML SYRUP UD PO SCH ×5 (00:16→23:23)
[2020-08-14] MEDS: SLF 3 ML SYR IV SCH (05:21)
[2020-08-14] MEDS: LevoFLOXacin 750 MG TABLET PO SCH (05:22)
[2020-08-14 06:00] VITALS: BP 153/72
[2020-08-14 06:12] LABS: HEMOGLOBIN 14.5 g/dl (13.5-17.5); MEAN CORPUSCULAR HEMOGLOBIN 28.9 pg (27.0-33.0); MEAN CORPUSCULAR HGB CONC 30.9 g/dl (32.0-36.5); MEAN CORPUSCULAR VOLUME 93.8 fl (80.0-96.0); PLATELET COUNT, AUTOMATED 201 10^3/uL (150-450); RED BLOOD COUNT 5.01 10^6/uL (4.30-6.10); WHITE BLOOD COUNT 7.8 10^3/uL (4.0-10.0)
[2020-08-14 06:34] LABS: BLOOD UREA NITROGEN 16 MG/DL (7-18); CALCIUM LEVEL 8.4 MG/DL (8.8-10.2); CARBON DIOXIDE LEVEL 38 MEQ/L (21-32); CHLORIDE LEVEL 97 MEQ/L (98-107); CREATININE FOR GFR 0.59 MG/DL (0.70-1.30); GLOMERULAR FILTRATION RATE > 60.0 (>49); GLUCOSE, FASTING 92 MG/DL (70-100); POTASSIUM SERUM 3.9 MEQ/L (3.5-5.1); SODIUM LEVEL 136 MEQ/L (136-145)
[2020-08-14] MEDS: LEVALBUTEROL 1.25 MG/0.5 ML CONCENTRATE NEB INH SCH ×4 (07:06→19:51)
[2020-08-14] MEDS: atenoloL 25 MG TAB PO SCH ×2 (09:00→20:13)
[2020-08-14] MEDS: amLODIPine 5 MG TAB PO SCH ×2 (09:00→20:13)
[2020-08-14] MEDS: THIAMINE 100 MG TAB PO SCH (09:32)
[2020-08-14] MEDS: NICOTINE 14 MG/24 HR TRANSDERMAL TD SCH (09:32)
[2020-08-14] MEDS: VENLAFAXINE 37.5 MG TAB PO SCH (09:32)
[2020-08-14] MEDS: MULTIVITAMINS/MINERALS THERAP 1 TAB PO SCH (09:32)
[2020-08-14] MEDS: ASPIRIN 81MG ENTERIC TABLET PO SCH (09:32)
[2020-08-14] MEDS: FUROSEMIDE 40 MG TAB PO SCH ×2 (09:33→17:37)
[2020-08-14] MEDS: ENOXAPARIN 40MG/0.4ML SYRINGE (J1650 PER 10MG) SC SCH (09:33)
[2020-08-14] MEDS: FOLIC ACID 1 MG TAB PO SCH (09:33)
[2020-08-14 14:35] VITALS: O2SAT 94
[2020-08-14 21:42] VITALS: O2SAT 94
[2020-08-15] MEDS: LevoFLOXacin 750 MG TABLET PO SCH (04:55)
[2020-08-15] MEDS: LACTULOSE 20 GM/30 ML SYRUP UD PO SCH ×4 (04:56→23:04)
[2020-08-15 05:57] LABS: HEMATOCRIT 46.5 % (42.0-52.0); HEMOGLOBIN 14.4 g/dl (13.5-17.5); MEAN CORPUSCULAR HEMOGLOBIN 29.3 pg (27.0-33.0); MEAN CORPUSCULAR VOLUME 94.5 fl (80.0-96.0); PLATELET COUNT, AUTOMATED 217 10^3/uL (150-450); RED BLOOD COUNT 4.92 10^6/uL (4.30-6.10); WHITE BLOOD COUNT 6.3 10^3/uL (4.0-10.0)
[2020-08-15 06:00] VITALS: BP 132/85
[2020-08-15 06:23] LABS: BLOOD UREA NITROGEN 17 MG/DL (7-18); CALCIUM LEVEL 8.6 MG/DL (8.8-10.2); CARBON DIOXIDE LEVEL 36 MEQ/L (21-32); CHLORIDE LEVEL 97 MEQ/L (98-107); GLOMERULAR FILTRATION RATE > 60.0 (>49); GLUCOSE, FASTING 80 MG/DL (70-100); POTASSIUM SERUM 3.8 MEQ/L (3.5-5.1); SODIUM LEVEL 136 MEQ/L (136-145)
[2020-08-15 06:25] VITALS: O2SAT 84
[2020-08-15 06:30] VITALS: O2SAT 94
[2020-08-15] MEDS: LEVALBUTEROL 1.25 MG/0.5 ML CONCENTRATE NEB INH SCH ×4 (07:14→19:39)
[2020-08-15 08:00] VITALS: O2SAT 92
[2020-08-15] MEDS: THIAMINE 100 MG TAB PO SCH (08:49)
[2020-08-15] MEDS: MULTIVITAMINS/MINERALS THERAP 1 TAB PO SCH (08:49)
[2020-08-15] MEDS: ASPIRIN 81MG ENTERIC TABLET PO SCH (08:49)
[2020-08-15] MEDS: VENLAFAXINE 37.5 MG TAB PO SCH (08:49)
[2020-08-15] MEDS: ENOXAPARIN 40MG/0.4ML SYRINGE (J1650 PER 10MG) SC SCH (08:49)
[2020-08-15] MEDS: FUROSEMIDE 40 MG TAB PO SCH ×2 (08:49→16:58)
[2020-08-15] MEDS: FOLIC ACID 1 MG TAB PO SCH (08:49)
[2020-08-15] MEDS: atenoloL 25 MG TAB PO SCH ×2 (08:50→20:05)
[2020-08-15] MEDS: amLODIPine 5 MG TAB PO SCH ×2 (08:50→20:05)
[2020-08-15] MEDS: NICOTINE 14 MG/24 HR TRANSDERMAL TD SCH (08:51)
[2020-08-15 22:36] VITALS: O2SAT 93
[2020-08-16] MEDS: LACTULOSE 20 GM/30 ML SYRUP UD PO SCH ×2 (05:14→11:51)
[2020-08-16] MEDS: LevoFLOXacin 750 MG TABLET PO SCH (05:14)
[2020-08-16 06:00] VITALS: BP 131/81
[2020-08-16 06:22] LABS: HEMATOCRIT 45.5 % (42.0-52.0); MEAN CORPUSCULAR HEMOGLOBIN 28.9 pg (27.0-33.0); MEAN CORPUSCULAR HGB CONC 30.8 g/dl (32.0-36.5); MEAN CORPUSCULAR VOLUME 93.8 fl (80.0-96.0); PLATELET COUNT, AUTOMATED 223 10^3/uL (150-450); RED BLOOD COUNT 4.85 10^6/uL (4.30-6.10); WHITE BLOOD COUNT 7.2 10^3/uL (4.0-10.0)
[2020-08-16 06:40] LABS: BLOOD UREA NITROGEN 20 MG/DL (7-18); CALCIUM LEVEL 8.5 MG/DL (8.8-10.2); CARBON DIOXIDE LEVEL 36 MEQ/L (21-32); CHLORIDE LEVEL 101 MEQ/L (98-107); CREATININE FOR GFR 0.69 MG/DL (0.70-1.30); GLOMERULAR FILTRATION RATE > 60.0 (>49); GLUCOSE, FASTING 89 MG/DL (70-100); POTASSIUM SERUM 3.9 MEQ/L (3.5-5.1); SODIUM LEVEL 140 MEQ/L (136-145)
[2020-08-16] MEDS: LEVALBUTEROL 1.25 MG/0.5 ML CONCENTRATE NEB INH SCH ×2 (06:56→11:10)
[2020-08-16] MEDS: ENOXAPARIN 40MG/0.4ML SYRINGE (J1650 PER 10MG) SC SCH (08:54)
[2020-08-16] MEDS: ASPIRIN 81MG ENTERIC TABLET PO SCH (08:54)
[2020-08-16] MEDS: THIAMINE 100 MG TAB PO SCH (08:54)
[2020-08-16] MEDS: VENLAFAXINE 37.5 MG TAB PO SCH (08:54)
[2020-08-16 08:55] VITALS: BP 116/76
[2020-08-16] MEDS: FOLIC ACID 1 MG TAB PO SCH (08:55)
[2020-08-16] MEDS: MULTIVITAMINS/MINERALS THERAP 1 TAB PO SCH (08:55)
[2020-08-16] MEDS: FUROSEMIDE 40 MG TAB PO SCH (08:55)
[2020-08-16] MEDS: atenoloL 25 MG TAB PO SCH (08:55)
[2020-08-16] MEDS: amLODIPine 5 MG TAB PO SCH (08:55)
[2020-08-16] MEDS: NICOTINE 14 MG/24 HR TRANSDERMAL TD SCH (08:56)
[2020-08-16] MEDS ORDERED: NICO14PA TD (09:42)
[2020-08-16] MEDS ORDERED: ATEN25TA PO (09:42)
[2020-08-16] MEDS ORDERED: THIA100TA PO (09:42)
[2020-08-16] MEDS ORDERED: VITMTA PO (09:42)
[2020-08-16] MEDS ORDERED: AMLO1TAB24 PO (09:42)
[2020-08-16] MEDS ORDERED: LEVO750T13 PO (09:42)
[2020-08-16] MEDS ORDERED: FURO40TA2 PO (09:42)
--- NOTE | 2020-08-16 10:04 | DS.PDOC ---
Discharge Summary General Date of Admission Aug 08, 2020 at 21:20 Date of Discharge Aug 16, 2020 Attending Physician: SANTINO BRADFORD MD Discharge Summary PROCEDURES PERFORMED DURING STAY: None. ADMITTING DIAGNOSES: 1. Hypertensive urgency. 2. Anasarca. 3. Acute diastolic congestive heart failure exacerbation with bilateral pleural effusions and BNP of 4496. 4. 3.8 cm ascending thoracic aortic aneurysm/infrarenal abdominal aortic aneurysm measures 4.7 cm maximum AP dimension with craniocaudad extent of 6.2 cm. 5. History of right thalamic strokes. 6. Active tobacco abuse with more than 50 pack year history of smoking. 7. Protein calorie malnutrition. 8. History of alcohol abuse. 9. Anxiety disorder. 10. Diverticulosis 11. 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 12. Moderate central spinal stenosis L2-L3, moderate to severe central spinal stenosis L3-L4, L4-L5, and L5-S1. DISCHARGE DIAGNOSES: 1. Hypertensive urgency. 2. Anasarca. 3. CAP. 4. Acute on chronic diastolic congestive heart failure exacerbation with bilateral pleural effusions. 5. AMS likely possible due to hepatic encephalopathy. 6. Aortic aneurysm. 7. Active tobacco abuse. 8. History of alcohol abuse. 9. Anxiety Disorder. COMPLICATIONS/CHIEF COMPLAINT: Anasarca. HISTORY OF PRESENT ILLNESS: (History obtained from patient's sister Flor Anderson [phone]) 69-year-old male with history of alcohol abuse, quit drinking in 1993 without documented history of liver cirrhosis, [id number] history of tobacco smoking, without documented history of COPD, right thalamic lacunar strokes, ascending thoracic aortic aneurysm at 3.8 cm, followed by vascular surgery, Dr. Martin, medical noncompliance, leaving AGAINST MEDICAL ADVICE and missing primary care physician appointments, chronic anasarca with no prior evaluation, anxiety disorder with missed appointments with Dr. Roya Rosenbaum was sent to the emergency room from his primary care doctor's appointment today due to uncontrolled blood pressure 225/126 and increasing abdominal ascites according to the sister. Patient has been disoriented for a long time and has not seen a physician for 2 months. He was seen in the ER in June 2020, but left AGAINST MEDICAL ADVICE. Patient could not provide review of system. He did not complain of any shortness of breath, headaches or changes in vision, chest pain, pressure at the bedside. In the emergency room, patient remained confused and could not provide any history, but oriented to where he was and is name., Glucose was 91. CT of the head had no acute intracranial pathology. Ammonia level was normal, less than 10. . Urine toxicology screen was negative. Sodium was normal at 133. He was afebrile, and CT chest, abdomen and pelvis has no signs of infection. CT chest showed small bilateral pleural effusions. CT abdomen pelvis shows anasarca and 3.8 cm ascending thoracic aneurysm. Hospitalist was asked to admit the patient for hypertensive urgency, acute on chronic encephalopathy, anasarca with bilateral pleural effusions and ascites, and acute diastolic heart failure with BNP of 4496. HOSPITAL COURSE: This is a 69-year-old male with history of alcohol abuse, quit drinking in 1993 without documented history of liver cirrhosis, [id number] history of tobacco smoking, without documented history of COPD, right thalamic lacunar strokes, ascending thoracic aortic aneurysm at 3.8 cm, followed by vascular surgery, Dr. Martin, medical noncompliance, leaving AGAINST MEDICAL ADVICE and missing primary care physician appointments, chronic anasarca with no prior evaluation, was sent to the emergency room from his primary care doctor's appointment today due to uncontrolled blood pressure 225/126 and increasing abdominal ascites according to the sister. Patient has been disoriented for a long time and has no t seen a physician for 2 months. He was seen in the ER in June 2020, but left AGAINST MEDICAL ADVICE. In the ER, patient remained confused and could not provide any history, but oriented to where he was and is name. Ammonia level was normal, less than 10. Urine toxicology screen was negative. Sodium was normal at 133. He was afebrile, and CT chest, abdomen and pelvis has no signs of infection. CT chest showed small bilateral pleural effusions. CT abdomen pelvis shows anasarca and 3.8 cm ascending thoracic aneurysm. Hospitalist was asked to admit the patient for hypertensive urgency with known history of 3.8 cm ascending thoracic aortic aneurysm, acute on chronic encephalopathy, anasarca w ith bilateral pleural effusions and ascites, with possible decompensated liver disease and acute diastolic heart failure with BNP of 4496. #Hypertensive urgency - BP improved - resume home meds #Anasarca - hx of alcohol use and cirrhosis. s/p paracentesis (200 ml) and fluid analysis- neg organism in ascites fluid - blood cx x2 negative - Serum albumin 3.1; ascites fluid albumin 1.6. Calculated serum ascites albumin gradient is 1.5 - Mildly elevated PT; INR within normal - Slight elevation of bilirubin; T/L2 within normal limits - Child hsu score 2 #CAP - Chest x-ray on 08/11 still shows moderate left lower lobe/which cardiac consolidation and effusion, which appears slightly increased from 08/08/20. - will complete course of Levofloxacin - Taken off of 1 L nasal cannula saturating greater than 90 % #Acute on chronic diastolic congestive heart failure exacerbation with bilateral pleural effusions - c/w telemetry - still with dyspnea on exertion - C/w lasix - and 24 hour output of approximately -2.5 L - C/W strict I's & O's, daily weights #AMS likely possible due to hepatic encephalopathy - Improved AAOx3 today #Aortic aneurysm - 3.8 cm ascending thoracic aortic aneurysm/ infrarenal abdominal aortic aneurysm measures 4.7 cm maximum AP dimension with a craniocaudad extent of 6.2 cm -On atenolol 25 mg twice a day for better blood pressure control. Outpatient follow-up with vascular surgery - stable as per radiology reports - Patient has been advised to stop smoking, but refuses #Active tobacco abuse -50+ pack-year history of smoking -Refused nicotine patch, tobacco cessation counseling has been provided #History of alcohol abuse - Quit in 1993 as per documentation and patient #Anxiety disorder -On chronic clonazepam. Sees psychiatrist, Dr. cerda, as outpatient, but n oncompliant with his appointments DISCHARGE MEDICATIONS: Please see below. ALLERGIES: Please see below. PHYSICAL EXAMINATION ON DISCHARGE: VITAL SIGNS: Please see below. GENERAL: NAD, sitting comfortably in bed. HEENT: NC/AT. EOMI CARDIOVASCULAR EXAMINATION: +S1S2, RRR RESPIRATORY EXAMINATION: CTA B/L ABDOMINAL EXAMINATION: Soft, NT, +BS EXTREMITIES: No edema SKIN: Bilateral tattoos upper extremities, multiple excoriations in bilateral lower extremities. No signs of cellulitis. NEUROLOGICAL EXAMINATION: No gross focal deficits. PSYCHIATRIC EXAMINATION: Alert, awake, oriented to person, place. LABORATORY DATA: Please see below. IMAGING: Head CT (08/08/20): IMPRESSION - 1. No acute intracranial abnormality. 2. Atrophy and chronic deep white matter ischemic changes. CXR (08/08/20): IMPRESSION - Left lower lobe/retrocardiac opacity. CTA (08/08/20): IMPRESSION - 1. Small bilateral pleural effusions, left greater than right. 2. There is fusiform dilation of the ascending thoracic aorta which measures 3.8 cm maximally. There is no dissection or saccular component. 3. There are no pulmonary emboli. 4. There is enlargement of the central pulmonary arteries, findings which can be associated with pulmonary arterial hypertension which should be correlated clinically. 5. No acute pulmonary parenchymal infiltrates. CT abd/pelvis (08/08/20): IMPRESSION - 1. There is moderate amount of free intraperitoneal fluid present. 2. Anasarca. 3. Stable infrarenal abdominal aortic aneurysm as described above. 4. Moderate diverticulosis is present in the distal colon. No diverticulitis. 5. Several loops of small bowel demonstrate thickened levine likely related to hypoproteinemia although enteritis not excluded. Vascular US (08/09/20): IMPRESSION - No evidence for deep venous thrombosis involving the bilateral upper extremities. Paracentesis US (08/09/20): IMPRESSION - Ultrasound-guided paracentesis with removal of 200 mL of ascites. CXR (08/11/20): IMPRESSION - Moderate left lower lobe/retrocardiac consolidation and effusion which appear slightly increased from prior examination. CXR (08/13/20): IMPRESSION - Continued left lower lobe consolidation and small left pleural effusion. PROGNOSIS: Fair. ACTIVITY: As tolerated. DIET: As tolerated. DISCHARGE PLAN: Discharge to [facility]. 1. Follow up with PCP within 7 days. 2. Follow up with cardiology within 7 days. 3. Outpatient follow-up with vascular surgery for AAA 4. Return to ER if you experience any problems/worsening symptoms. DISCHARGE CONDITION: Fair TIME SPENT ON DISCHARGE: 35 minutes. Vital Signs/I&Os Vital Signs Date Time Temp Pulse Resp B/P (MAP) Pulse Ox O2 Delivery O2 Flow Rate FiO2 08/16/20 08:55 116/76 08/16/20 06:00 97.5 71 18 96 Room Air 08/15/20 06:30 0.5 I&O- Last 24 Hours up to 6 AM 08/16/20 06:00 Intake Total 1260 ml Output Total 350 ml Balance 910 ml Laboratory Data Labs 24H Laboratory Tests 2 08/16/20 05:13: Nucleated Red Blood Cells % (auto) 0.0, Anion Gap 3L, Glomerular Filtration Rate > 60.0, Calcium Level 8.5L CBC/BMP Laboratory Tests 08/16/20 05:13 Microbiology Microbiology 08/10/20 Respiratory Virus Panel (PCR) ([facility]) - Final, Complete 08/09/20 Gram Stain - Final, Complete 08/09/20 Body Fluid Culture - Final, Complete 08/09/20 Anaerobic Culture - Final, Complete 08/08/20 Blood Culture - Final, Complete NO GROWTH AFTER 5 DAYS 08/08/20 Blood Culture - Final, Complete NO GROWTH AFTER 5 DAYS Discharge Medications Scheduled Amlodipine Besylate (Amlodipine Besylate) 5 Mg Tablet, 5 MG PO BID Aspirin (Aspirin EC) 81 Mg Tablet.dr, 81 MG PO DAILY, (Reported) Atenolol (Atenolol) 25 Mg Tablet, 25 MG PO BID Folic Acid (Folic Acid) 1 Mg Tab, 1 MG PO DAILY, (Reported) Furosemide (Furosemide) 40 Mg Tablet, 40 MG PO BID@09,17 Levofloxacin (Levofloxacin) 750 Mg Tablet, 750 MG PO DAILY@0600 Multivitamins (Thera M Plus Tablet) 1 Each Tablet, 1 TAB PO DAILY Nicotine (Nicotine Patch) 14 Mg Patch.td24, 1 PATCH TD DAILY Thiamine Hcl (Vitamin B-1) 100 Mg Tablet, 100 MG PO DAILY Venlafaxine HCl (Venlafaxine HCl) 75 Mg Tab, 75 MG PO DAILY, (Reported) Scheduled PRN Albuterol Sulfate (Albuterol Sulfate Hfa) 8.5 Gm Hfa.aer.ad, 2 PUFFS INH Q4H PRN for SHORTNESS OF BREATH, (Reported) Allergies Coded Allergies: No Known Allergies (Unverified , 03/20/15) GME ATTESTATION GME ATTESTATION My faculty preceptor for this patient encounter was physically present during the encounter and was fully available. All aspects of the patient interview, examination, medical decision making process, and medical care plan development were reviewed and approved by the faculty preceptor. The faculty preceptor is aware and concurs with the plan as stated in the body of this note and will attest to such by his/her cosignature. ATTENDING NOTE I, Santino Bradford, have independently examined this patient and performed my own physical exam, as well as reviewed the documentation and edited where necessary. I have discussed in detail with the resident / student the findings and plan of treatment as documented by the resident / student and edited their note. I agree with their findings and treatment plan and have edited their documentation. I will continue to follow the patient during this hospital stay. Time spent on discharge 35 minutes Sudha Bautista DO Aug 16, 2020 10:04 Mikaela [id number] Aug 16, 2020 16:12 SANTINO BRADFORD MD Aug 16, 2020 17:42
== END 2020-08-16 12:38 | DRG 291 ==
LOC: M ED 16:06 → M ED INP 21:20 → ENRESERV 21:29 → M PCU 22:20 → M MSPAV 08-10 18:13
PROVIDERS: ADMIT General Practice; ATTEND Internal Medicine
PROC: 0W9G3ZX Drainage of Peritoneal Cavity, Percutaneous Approach, Diagnostic (ICD-10-PCS; principal; 2020-08-09 15:00)
DX: I50.33 Acute on chronic diastolic (congestive) heart failure (principal); J18.9 Pneumonia, unspecified organism; E46 Unspecified protein-calorie malnutrition; I77.4 Celiac artery compression syndrome; I16.0 Hypertensive urgency; R60.1 Generalized edema; I71.2 Thoracic aortic aneurysm, without rupture; I71.4 Abdominal aortic aneurysm, without rupture; K72.90 Hepatic failure, unspecified without coma; F17.200 Nicotine dependence, unspecified, uncomplicated; F41.9 Anxiety disorder, unspecified; Z91.19 Patient's noncompliance with other medical treatment and regimen; Z79.82 Long term (current) use of aspirin; Z79.899 Other long term (current) drug therapy

== ENCOUNTER → 2020-08-20 | Outpatient (REF) ==
[~2020-08-20] MED LIST changes: +AMLO1TAB24 PO; +ATEN25TA PO; +FURO40TA2 PO; +LEVO750T13 PO; +NICO14PA TD; +THIA100TA PO; +VITMTA PO
[2020-08-20 08:46] LABS: BLOOD UREA NITROGEN 22 MG/DL (7-18); CALCIUM LEVEL 8.6 MG/DL (8.8-10.2); CARBON DIOXIDE LEVEL 35 MEQ/L (21-32); CHLORIDE LEVEL 101 MEQ/L (98-107); CREATININE FOR GFR 0.64 MG/DL (0.70-1.30); GLOMERULAR FILTRATION RATE > 60.0 (>49); GLUCOSE, FASTING 82 MG/DL (70-100); SODIUM LEVEL 141 MEQ/L (136-145)
== END ==
LOC: SKLAB2 10:56
PROVIDERS: ATTEND Internal Medicine
DX: I50.9 Heart failure, unspecified (principal)

== ENCOUNTER → 2020-09-06 | Outpatient (REF) | payer MEDICARE, OTHER | LOC: SKLAB2 15:49 | PROVIDERS: ATTEND Internal Medicine | DX: Z20.822 Contact with and (suspected) exposure to COVID-19 (principal) ==

== ENCOUNTER → 2020-12-05 | Outpatient (REF) | payer MEDICARE, OTHER ==
[2020-12-05 09:49] LABS: HEMATOCRIT 42.2 % (42.0-52.0); HEMOGLOBIN 13.6 g/dl (13.5-17.5); MEAN CORPUSCULAR HEMOGLOBIN 30.6 pg (27.0-33.0); MEAN CORPUSCULAR HGB CONC 32.2 g/dl (32.0-36.5); MEAN CORPUSCULAR VOLUME 94.8 fl (80.0-96.0); PLATELET COUNT, AUTOMATED 249 10^3/uL (150-450); RED BLOOD COUNT 4.45 10^6/uL (4.30-6.10); WHITE BLOOD COUNT 7.4 10^3/uL (4.0-10.0)
[2020-12-05 10:20] LABS: ALBUMIN 3.8 GM/DL (3.2-5.2); ALT/SGPT 36 U/L (12-78); BILIRUBIN,TOTAL 0.4 MG/DL (0.2-1.0); BLOOD UREA NITROGEN 24 MG/DL (7-18); CALCIUM LEVEL 9.3 MG/DL (8.8-10.2); CARBON DIOXIDE LEVEL 35 MEQ/L (21-32); CHLORIDE LEVEL 99 MEQ/L (98-107); CREATININE FOR GFR 0.87 MG/DL (0.70-1.30); GLOMERULAR FILTRATION RATE > 60.0 (>49); GLUCOSE, FASTING 162 MG/DL (70-100); POTASSIUM SERUM 4.2 MEQ/L (3.5-5.1); SODIUM LEVEL 139 MEQ/L (136-145); TOTAL PROTEIN 6.8 GM/DL (6.4-8.2)
== END ==
LOC: SKLAB7 07:00
PROVIDERS: ATTEND Internal Medicine
DX: I10 Essential (primary) hypertension (principal); R60.1 Generalized edema

== ENCOUNTER → 2020-12-19 | Outpatient (REF) | payer MEDICARE, OTHER | LOC: SKLAB7 13:37 | PROVIDERS: ATTEND Internal Medicine | DX: Z11.52 Encounter for screening for COVID-19 (principal); Z20.822 Contact with and (suspected) exposure to COVID-19 ==

== ENCOUNTER → 2021-12-24 | Outpatient (REF) | payer MEDICARE, OTHER ==
[2021-12-24 12:59] LABS: BASO % 0.5 % (0.0-1.0); EOS # 0.1 10^3/uL (0.0-0.5); EOS % 1.7 % (0.0-3.0); HEMATOCRIT 43.8 % (42.0-52.0); HEMOGLOBIN 14.7 g/dl (13.5-17.5); LYMPH # 1.8 10^3/uL (1.5-5.0); LYMPH % 23.3 % (24.0-44.0); MEAN CORPUSCULAR HEMOGLOBIN 31.1 pg (27.0-33.0); MEAN CORPUSCULAR HGB CONC 33.6 g/dl (32.0-36.5); MEAN CORPUSCULAR VOLUME 92.6 fl (80.0-96.0); MONO # 0.7 10^3/uL (0.0-0.8); MONO % 9.5 % (2.0-8.0); NEUTROPHILS % 64.5 % (36.0-66.0); PLATELET COUNT, AUTOMATED 230 10^3/uL (150-450); RED BLOOD COUNT 4.73 10^6/uL (4.30-6.10); WHITE BLOOD COUNT 7.8 10^3/uL (4.0-10.0)
[2021-12-24 13:07] LABS: INR 0.96; PROTHROMBIN TIME 13.2 SECONDS (12.7-14.5)
[2021-12-24 13:22] LABS: HEMOGLOBIN A1c 6.1 %
[2021-12-24 13:26] LABS: BLOOD UREA NITROGEN 11 MG/DL (7-18); CARBON DIOXIDE LEVEL 35 MEQ/L (21-32); CHLORIDE LEVEL 103 MEQ/L (98-107); CREATININE FOR GFR 0.83 MG/DL (0.70-1.30); GLOMERULAR FILTRATION RATE > 60.0 (>42); GLUCOSE, FASTING 101 MG/DL (70-100); POTASSIUM SERUM 3.9 MEQ/L (3.5-5.1); SODIUM LEVEL 141 MEQ/L (136-145)
[2021-12-24 13:27] LABS: ALBUMIN 3.4 GM/DL (3.2-5.2); ALT/SGPT 16 U/L (12-78); BILIRUBIN,TOTAL 0.4 MG/DL (0.2-1.0); CHOLESTEROL LEVEL 185 MG/DL (<200); CHOLESTEROL RISK RATIO 3.936 (<5); HDL CHOLESTEROL 47 MG/DL (>40); LDL CHOLESTEROL 121 MG/DL (<100); NON-HDL-C 138 MG/DL; TOTAL PROTEIN 6.3 GM/DL (6.4-8.2); TRIGLYCERIDES LEVEL 83 MG/DL (<150)
== END ==
PROVIDERS: ATTEND Family Medicine
DX: E78.2 Mixed hyperlipidemia (principal); Z79.899 Other long term (current) drug therapy

== ENCOUNTER → 2021-12-29 | Outpatient (CLI) | payer MEDICARE, OTHER | LOC: M RAD 09:12 | PROVIDERS: ATTEND Family Medicine | DX: I71.4 Abdominal aortic aneurysm, without rupture (principal) ==

== ENCOUNTER → 2022-01-20 | Outpatient (CLI) | payer MEDICARE, OTHER ==
[~2022-01-20] MED LIST changes: +LEVO1TAB40 PO; -LEVO750T13 PO; +SIMV-253 PO; -ZOCO20TA PO
== END ==
LOC: M RAD 12:27
PROVIDERS: ATTEND Family Medicine
DX: Z87.891 Personal history of nicotine dependence (principal); R91.1 Solitary pulmonary nodule

== ENCOUNTER → 2022-07-15 | Outpatient (CLI) | payer MEDICARE, OTHER | LOC: M RAD 07:17 | PROVIDERS: ATTEND Nurse Practitioner Family | DX: I71.40 Abdominal aortic aneurysm, without rupture, unspecified (principal); I63.9 Cerebral infarction, unspecified; I10 Essential (primary) hypertension; I65.23 Occlusion and stenosis of bilateral carotid arteries ==

== ENCOUNTER → 2022-08-21 | Outpatient (REF) | payer MEDICARE, OTHER ==
[2022-08-21 10:15] LABS: BLOOD UREA NITROGEN 17 MG/DL (9-23); CREATININE FOR GFR 0.82 MG/DL (0.70-1.30); GLOMERULAR FILTRATION RATE > 60.0 (>42)
== END ==
PROVIDERS: ATTEND Surgery Vascular Surgery
DX: Z01.818 Encounter for other preprocedural examination (principal)

== ENCOUNTER → 2022-08-24 | Outpatient (CLI) | payer MEDICARE, OTHER ==
[~2022-08-24] MED LIST changes: +ISOVUE-370 76% 100ML VIAL As Ordered ONE
== END ==
LOC: M RAD 09:38
PROVIDERS: ATTEND Surgery Vascular Surgery
DX: I70.213 Atherosclerosis of native arteries of extremities with intermittent claudication, bilateral legs (principal); I65.23 Occlusion and stenosis of bilateral carotid arteries; I71.43 Infrarenal abdominal aortic aneurysm, without rupture; I70.0 Atherosclerosis of aorta; M47.9 Spondylosis, unspecified; K57.30 Diverticulosis of large intestine without perforation or abscess without bleeding
CPT/HCPCS: 71275; 74174; Q9967

== ENCOUNTER → 2022-09-24 | Outpatient (CLI) | payer MEDICARE, OTHER ==
[~2022-09-24] MED LIST changes: -ISOVUE-370 76% 100ML VIAL As Ordered ONE
== END ==
LOC: M RAD 10:59
PROVIDERS: ATTEND Surgery Vascular Surgery
DX: I70.213 Atherosclerosis of native arteries of extremities with intermittent claudication, bilateral legs (principal); I71.40 Abdominal aortic aneurysm, without rupture, unspecified; I65.23 Occlusion and stenosis of bilateral carotid arteries

== ENCOUNTER → 2022-12-07 | Outpatient (REF) | payer MEDICARE, OTHER ==
[2022-12-07 09:15] LABS: BASO # 0.1 10^3/uL (0.0-0.2); BASO % 0.6 % (0.0-1.0); EOS # 0.2 10^3/uL (0.0-0.5); EOS % 2.6 % (0.0-3.0); HEMATOCRIT 43.9 % (42.0-52.0); HEMOGLOBIN 14.5 g/dl (13.5-17.5); LYMPH # 1.8 10^3/uL (1.5-5.0); LYMPH % 22.4 % (24.0-44.0); MEAN CORPUSCULAR HEMOGLOBIN 30.3 pg (27.0-33.0); MEAN CORPUSCULAR VOLUME 91.6 fl (80.0-96.0); MONO # 0.8 10^3/uL (0.0-0.8); MONO % 9.7 % (2.0-8.0); NEUTROPHILS # 5.2 10^3/uL (1.5-8.5); NEUTROPHILS % 64.5 % (36.0-66.0); PLATELET COUNT, AUTOMATED 250 10^3/uL (150-450); RED BLOOD COUNT 4.79 10^6/uL (4.30-6.10)
[2022-12-07 09:29] LABS: ALBUMIN 3.5 G/DL (3.2-5.2); ALKALINE PHOSPHATASE 91 U/L (46-116); ALT/SGPT 13 U/L (7.0-40); AST/SGOT 11 U/L (<34); BILIRUBIN,TOTAL 0.5 MG/DL (0.3-1.2); BLOOD UREA NITROGEN 13 MG/DL (9-23); CALCIUM LEVEL 9.2 MG/DL (8.3-10.6); CARBON DIOXIDE LEVEL 36 MMOL/L (20-31); CHLORIDE LEVEL 99 MMOL/L (98-107); CHOLESTEROL LEVEL 190 MG/DL (<200); CHOLESTEROL RISK RATIO 4.25 (<5); CREATININE FOR GFR 0.83 MG/DL (0.70-1.30); GLOMERULAR FILTRATION RATE > 60.0 (>42); GLUCOSE, FASTING 118 MG/DL (74-106); HDL CHOLESTEROL 44.7 MG/DL (>40); LDL CHOLESTEROL 113.7 MG/DL (<100); NON-HDL-C 145.3 MG/DL; POTASSIUM SERUM 3.5 MMOL/L (3.5-5.1); SODIUM LEVEL 139 MMOL/L (136-145); TOTAL PROTEIN 6.2 G/DL (5.7-8.2); TRIGLYCERIDES LEVEL 158 MG/DL (<150)
== END ==
PROVIDERS: ATTEND Family Medicine
DX: I10 Essential (primary) hypertension (principal)

== ENCOUNTER → 2022-12-23 | Outpatient (REF) | payer MEDICARE, OTHER ==
[2022-12-23 10:17] LABS: BASO # 0.1 10^3/uL (0.0-0.2); BASO % 0.6 % (0.0-1.0); EOS # 0.2 10^3/uL (0.0-0.5); EOS % 1.7 % (0.0-3.0); HEMATOCRIT 46.2 % (42.0-52.0); LYMPH # 1.7 10^3/uL (1.5-5.0); LYMPH % 18.7 % (24.0-44.0); MEAN CORPUSCULAR HEMOGLOBIN 30.3 pg (27.0-33.0); MEAN CORPUSCULAR HGB CONC 32.5 g/dl (32.0-36.5); MEAN CORPUSCULAR VOLUME 93.3 fl (80.0-96.0); MONO # 0.9 10^3/uL (0.0-0.8); MONO % 9.4 % (2.0-8.0); NEUTROPHILS # 6.3 10^3/uL (1.5-8.5); NEUTROPHILS % 69.4 % (36.0-66.0); PLATELET COUNT, AUTOMATED 247 10^3/uL (150-450); RED BLOOD COUNT 4.95 10^6/uL (4.30-6.10)
[2022-12-23 10:42] LABS: ALBUMIN 3.7 G/DL (3.2-5.2); ALKALINE PHOSPHATASE 97 U/L (46-116); ALT/SGPT 15 U/L (7.0-40); AST/SGOT 13 U/L (<34); BILIRUBIN,TOTAL 0.5 MG/DL (0.3-1.2); BLOOD UREA NITROGEN 12 MG/DL (9-23); CALCIUM LEVEL 9.5 MG/DL (8.3-10.6); CARBON DIOXIDE LEVEL 35 MMOL/L (20-31); CHLORIDE LEVEL 101 MMOL/L (98-107); CHOLESTEROL LEVEL 198 MG/DL (<200); CREATININE FOR GFR 0.88 MG/DL (0.70-1.30); GLOMERULAR FILTRATION RATE > 60.0 (>42); GLUCOSE, FASTING 113 MG/DL (74-106); HDL CHOLESTEROL 50.7 MG/DL (>40); LDL CHOLESTEROL 109.9 MG/DL (<100); NON-HDL-C 147.3 MG/DL; SODIUM LEVEL 142 MMOL/L (136-145); TOTAL PROTEIN 6.7 G/DL (5.7-8.2); TRIGLYCERIDES LEVEL 187 MG/DL (<150)
== END ==
PROVIDERS: ATTEND Family Medicine
DX: I10 Essential (primary) hypertension (principal)

== ENCOUNTER → 2023-01-18 | Outpatient (REF) | payer MEDICARE, OTHER ==
[2023-01-18 08:22] LABS: BASO # 0.1 10^3/uL (0.0-0.2); BASO % 0.6 % (0.0-1.0); EOS # 0.2 10^3/uL (0.0-0.5); EOS % 2.1 % (0.0-3.0); HEMATOCRIT 45.4 % (42.0-52.0); HEMOGLOBIN 14.6 g/dl (13.5-17.5); LYMPH # 1.6 10^3/uL (1.5-5.0); LYMPH % 19.6 % (24.0-44.0); MEAN CORPUSCULAR HEMOGLOBIN 30.2 pg (27.0-33.0); MEAN CORPUSCULAR HGB CONC 32.2 g/dl (32.0-36.5); MEAN CORPUSCULAR VOLUME 93.8 fl (80.0-96.0); MONO # 0.8 10^3/uL (0.0-0.8); MONO % 9.9 % (2.0-8.0); NEUTROPHILS # 5.6 10^3/uL (1.5-8.5); NEUTROPHILS % 67.2 % (36.0-66.0); PLATELET COUNT, AUTOMATED 245 10^3/uL (150-450); RED BLOOD COUNT 4.84 10^6/uL (4.30-6.10); WHITE BLOOD COUNT 8.3 10^3/uL (4.0-10.0)
[2023-01-18 08:47] LABS: ALBUMIN 3.5 G/DL (3.2-5.2); ALKALINE PHOSPHATASE 93 U/L (46-116); ALT/SGPT 17 U/L (7.0-40); AST/SGOT 11 U/L (<34); BILIRUBIN,TOTAL 0.3 MG/DL (0.3-1.2); BLOOD UREA NITROGEN 15 MG/DL (9-23); CALCIUM LEVEL 9.1 MG/DL (8.3-10.6); CARBON DIOXIDE LEVEL 34 MMOL/L (20-31); CHLORIDE LEVEL 103 MMOL/L (98-107); CHOLESTEROL LEVEL 143 MG/DL (<200); CHOLESTEROL RISK RATIO 3.13 (<5); CREATININE FOR GFR 0.85 MG/DL (0.70-1.30); GLOMERULAR FILTRATION RATE > 60.0 (>42); GLUCOSE, FASTING 106 MG/DL (74-106); HDL CHOLESTEROL 45.6 MG/DL (>40); LDL CHOLESTEROL 74.4 MG/DL (<100); NON-HDL-C 97.4 MG/DL; POTASSIUM SERUM 3.6 MMOL/L (3.5-5.1); SODIUM LEVEL 144 MMOL/L (136-145); TOTAL PROTEIN 6.2 G/DL (5.7-8.2); TRIGLYCERIDES LEVEL 115 MG/DL (<150)
== END ==
PROVIDERS: ATTEND Family Medicine
DX: I10 Essential (primary) hypertension (principal)

== ENCOUNTER → 2023-02-03 | Outpatient (CLI) | payer MEDICARE, OTHER | LOC: M RAD 12:22 | PROVIDERS: ATTEND Family Medicine | DX: Z12.2 Encounter for screening for malignant neoplasm of respiratory organs (principal); F17.210 Nicotine dependence, cigarettes, uncomplicated; R91.1 Solitary pulmonary nodule; I77.819 Aortic ectasia, unspecified site ==

== ENCOUNTER → 2023-03-26 | Outpatient (REF) | payer MEDICARE, OTHER ==
[~2023-03-26] MED LIST changes: +ACET1TAB55 PO; +ATOR1TAB21 PO; +BUPR-69 PO; +MILKSUS3 PO
[2023-03-26 09:30] LABS: BASO % 0.5 % (0.0-1.0); EOS # 0.2 10^3/uL (0.0-0.5); HEMATOCRIT 46.6 % (42.0-52.0); HEMOGLOBIN 15.1 g/dl (13.5-17.5); LYMPH # 0.9 10^3/uL (1.5-5.0); MEAN CORPUSCULAR HEMOGLOBIN 30.6 pg (27.0-33.0); MEAN CORPUSCULAR HGB CONC 32.4 g/dl (32.0-36.5); MEAN CORPUSCULAR VOLUME 94.5 fl (80.0-96.0); MONO # 0.8 10^3/uL (0.0-0.8); NEUTROPHILS # 5.7 10^3/uL (1.5-8.5); PLATELET COUNT, AUTOMATED 240 10^3/uL (150-450); RED BLOOD COUNT 4.93 10^6/uL (4.30-6.10); WHITE BLOOD COUNT 7.6 10^3/uL (4.0-10.0)
[2023-03-27 12:18] LABS: ALKALINE PHOSPHATASE 105 U/L (40-129); ALT/SGPT 13 U/L (1-41); AST/SGOT 15 U/L (5-40); BILIRUBIN,TOTAL < 0.7 MG/DL (0.2-1.3); BLOOD UREA NITROGEN 16 MG/DL (7-21); CALCIUM LEVEL 9.2 MG/DL (8.8-10.2); CARBON DIOXIDE LEVEL 31 MEQ/L (22-30); CHLORIDE LEVEL 97 MEQ/L (98-107); CREATININE FOR GFR 0.9 MG/DL (0.7-1.5); GLOMERULAR FILTRATION RATE > 60.0 (>42); GLUCOSE, FASTING 232 MG/DL; POTASSIUM SERUM 3.6 MEQ/L (3.6-5.0); SODIUM LEVEL 142 MEQ/L (134-153); TOTAL PROTEIN 6.4 G/DL (6.3-8.2)
== END ==
PROVIDERS: ATTEND Registered Nurse
DX: Z01.818 Encounter for other preprocedural examination (principal); I10 Essential (primary) hypertension

== ENCOUNTER → 2023-06-11 | Outpatient (REF) | payer MEDICARE, OTHER ==
[2023-06-11 10:12] LABS: HEMOGLOBIN A1c 6.4 % (4.0-6.0)
[2023-06-11 10:24] LABS: ALBUMIN 3.3 G/DL (3.2-5.2); ALKALINE PHOSPHATASE 89 U/L (46-116); ALT/SGPT 16 U/L (7.0-40); AST/SGOT 14 U/L (<34); BILIRUBIN,TOTAL 0.4 MG/DL (0.3-1.2); BLOOD UREA NITROGEN 17 MG/DL (9-23); CALCIUM LEVEL 8.8 MG/DL (8.3-10.6); CARBON DIOXIDE LEVEL 33 MMOL/L (20-31); CHLORIDE LEVEL 103 MMOL/L (98-107); CREATININE FOR GFR 0.69 MG/DL (0.70-1.30); GLOMERULAR FILTRATION RATE > 60.0 (>42); GLUCOSE, FASTING 209 MG/DL (74-106); POTASSIUM SERUM 3.6 MMOL/L (3.5-5.1); SODIUM LEVEL 141 MMOL/L (136-145); TOTAL PROTEIN 5.8 G/DL (5.7-8.2)
== END ==
PROVIDERS: ATTEND Family Medicine
DX: R73.09 Other abnormal glucose (principal)

== ENCOUNTER → 2023-10-27 | Outpatient (REF) | payer MEDICARE, OTHER ==
[~2023-10-27] MED LIST changes: -HYDR-3910 PO; +HYDR25TA87 PO; -KLON0.5T PO; +KLON0.5T8 PO
[2023-10-27 13:08] LABS: ALBUMIN 3.5 G/DL (3.2-5.2); ALKALINE PHOSPHATASE 99 U/L (46-116); ALT/SGPT 18 U/L (7.0-40); AST/SGOT 11 U/L (<34); BILIRUBIN,TOTAL 0.4 MG/DL (0.3-1.2); BLOOD UREA NITROGEN 17 MG/DL (9-23); CALCIUM LEVEL 9.4 MG/DL (8.3-10.6); CARBON DIOXIDE LEVEL 34 MMOL/L (20-31); CHLORIDE LEVEL 105 MMOL/L (98-107); GLOMERULAR FILTRATION RATE > 60.0 (>42); GLUCOSE, FASTING 99 MG/DL (74-106); SODIUM LEVEL 141 MMOL/L (136-145); TOTAL PROTEIN 6.4 G/DL (5.7-8.2)
[2023-10-27 17:03] LABS: HEMOGLOBIN A1c 6.2 % (4.0-6.0)
== END ==
PROVIDERS: ATTEND Family Medicine
DX: R73.09 Other abnormal glucose (principal)

== ENCOUNTER → 2024-03-28 | Outpatient (CLI) | payer MEDICARE, OTHER | LOC: M RAD 10:00 | PROVIDERS: ATTEND Family Medicine | DX: Z12.2 Encounter for screening for malignant neoplasm of respiratory organs (principal); F17.210 Nicotine dependence, cigarettes, uncomplicated; R91.1 Solitary pulmonary nodule; I70.0 Atherosclerosis of aorta ==

== ENCOUNTER → 2024-06-26 | Outpatient (REF) | payer MEDICARE, OTHER ==
[2024-06-26 11:59] LABS: BASO % 0.5 % (0.0-1.0); EOS # 0.2 10^3/uL (0.0-0.5); EOS % 2.5 % (0.0-3.0); HEMATOCRIT 45.7 % (42.0-52.0); HEMOGLOBIN 14.6 g/dl (13.5-17.5); LYMPH # 1.4 10^3/uL (1.5-5.0); LYMPH % 18.6 % (24.0-44.0); MEAN CORPUSCULAR HEMOGLOBIN 30.4 pg (27.0-33.0); MEAN CORPUSCULAR HGB CONC 31.9 g/dl (32.0-36.5); MEAN CORPUSCULAR VOLUME 95.2 fl (80.0-96.0); MONO # 0.8 10^3/uL (0.0-0.8); MONO % 9.8 % (2.0-8.0); NEUTROPHILS # 5.3 10^3/uL (1.5-8.5); NEUTROPHILS % 68.3 % (36.0-66.0); PLATELET COUNT, AUTOMATED 223 10^3/uL (150-450); WHITE BLOOD COUNT 7.7 10^3/uL (4.0-10.0)
[2024-06-26 12:15] LABS: HEMOGLOBIN A1c 6.3 % (4.0-6.0)
[2024-06-26 12:25] LABS: ALBUMIN 3.6 G/DL (3.2-5.2); ALKALINE PHOSPHATASE 87 U/L (40-129); ALT/SGPT 20 U/L (7.0-40); AST/SGOT 14 U/L (<34); BILIRUBIN,TOTAL 0.3 MG/DL (0.3-1.2); BLOOD UREA NITROGEN 20 MG/DL (9-23); CALCIUM LEVEL 9.5 MG/DL (8.3-10.6); CARBON DIOXIDE LEVEL 35 MMOL/L (20-31); CHLORIDE LEVEL 101 MMOL/L (98-107); CHOLESTEROL LEVEL 164 MG/DL (<200); CHOLESTEROL RISK RATIO 2.97 (<5); CREATININE FOR GFR 0.91 MG/DL (0.70-1.30); GLOMERULAR FILTRATION RATE > 60.0 (>42); GLUCOSE, FASTING 195 MG/DL (74-106); HDL CHOLESTEROL 55.2 MG/DL (>40); LDL CHOLESTEROL 75.6 MG/DL (<100); NON-HDL-C 108.8 MG/DL; POTASSIUM SERUM 4.3 MMOL/L (3.5-5.1); SODIUM LEVEL 144 MMOL/L (136-145); TOTAL PROTEIN 6.5 G/DL (5.7-8.2); TRIGLYCERIDES LEVEL 166 MG/DL (<150)
== END ==
PROVIDERS: ATTEND Nurse Practitioner Family
DX: I10 Essential (primary) hypertension (principal); E78.2 Mixed hyperlipidemia; R73.03 Prediabetes

== ENCOUNTER → 2025-04-02 | Outpatient (REF) | payer MEDICARE, OTHER ==
[2025-04-02 11:15] LABS: ESTIMATED AVERAGE GLUCOSE 140.0 MG/DL (60-110)
[2025-04-02 11:34] LABS: ALT/SGPT 22 U/L (7.0-40); AST/SGOT 19 U/L (<34); CALCIUM LEVEL 9.3 MG/DL (8.3-10.6); CARBON DIOXIDE LEVEL 35 MMOL/L (20-31); CHLORIDE LEVEL 100 MMOL/L (98-107); CHOLESTEROL LEVEL 157 MG/DL (<200); CHOLESTEROL RISK RATIO 2.85 (<5); CREATININE FOR GFR 0.77 MG/DL (0.70-1.30); GLOMERULAR FILTRATION RATE > 90.0 (>42); LDL CHOLESTEROL 82.7 MG/DL (<100); NON-HDL-C 102.1 MG/DL; POTASSIUM SERUM 4.0 MMOL/L (3.5-5.1); SODIUM LEVEL 143 MMOL/L (136-145); TRIGLYCERIDES LEVEL 97 MG/DL (<150)
== END ==
PROVIDERS: ATTEND Nurse Practitioner Family
DX: E78.2 Mixed hyperlipidemia (principal); I10 Essential (primary) hypertension; R73.03 Prediabetes

== ENCOUNTER → 2025-04-06 | Outpatient (CLI) | payer MEDICARE, OTHER, MEDICAID | LOC: M RAD 08:03 | PROVIDERS: ATTEND Nurse Practitioner Family | DX: Z12.2 Encounter for screening for malignant neoplasm of respiratory organs (principal); F17.210 Nicotine dependence, cigarettes, uncomplicated; J43.9 Emphysema, unspecified; R91.1 Solitary pulmonary nodule; I25.10 Atherosclerotic heart disease of native coronary artery without angina pectoris; I70.0 Atherosclerosis of aorta; I77.810 Thoracic aortic ectasia ==